=== PATIENT | female | born 2000 | race Asian ===

== ENCOUNTER → 2020-04-21 10:24 | Outpatient (BNVA) | payer OTHER, SELFPAY | PROVIDERS: Visit Provider Advanced Practice Midwife | DX: Z30.42 Encounter for surveillance of injectable contraceptive (principal) | CPT/HCPCS: 96372 ==

== ENCOUNTER 2020-05-10 11:48 | Outpatient (REF) | payer OTHER, SELFPAY | END 2020-05-10 11:49 | disposition home or self-care (01) | LOC: HO.LAB 11:48 | PROVIDERS: PCP Physician Assistant; Visit Provider Internal Medicine | DX: Z20.828 Contact with and (suspected) exposure to other viral communicable diseases (principal) | CPT/HCPCS: C9803; U0003 ==

== ENCOUNTER → 2020-07-10 12:54 | Outpatient (BNVA) | payer OTHER, SELFPAY | PROVIDERS: PCP Physician Assistant; Visit Provider Advanced Practice Midwife | DX: Z76.89 Persons encountering health services in other specified circumstances (principal) ==

== ENCOUNTER 2021-01-26 14:10 | Outpatient (REF) | payer OTHER, SELFPAY ==
--- NOTE | ~2021-01-26 | XR_ITS ---
EXAMINATION: XR FINGER, RIGHT CLINICAL INFORMATION: Pain right finger COMPARISON: None TECHNIQUE: 3 views of the right finger. FINDINGS: The bones and soft tissues are normal. No fracture. Alignment is anatomic. Joint spaces are maintained. XR/XR finger RT min 2V IMPRESSION: Unremarkable right hand exam. Especially no abnormality seen involving the right first digit.
== END 2021-01-26 14:11 | disposition home or self-care (01) ==
LOC: HO.HMGCX 14:10
PROVIDERS: PCP Physician Assistant; Visit Provider Hospitalist
DX: M79.644 Pain in right finger(s) (principal)
CPT/HCPCS: 73140

== ENCOUNTER 2021-01-31 10:22 | Outpatient (REF) | payer OTHER, SELFPAY ==
[2021-01-31 16:09] LABS: CT PCR NOT DETECTED (Not Detect.); NG PCR NOT DETECTED (Not Detect.)
== END 2021-01-31 10:23 | disposition home or self-care (01) ==
LOC: HO.LAB 10:22
PROVIDERS: PCP Physician Assistant; Visit Provider Advanced Practice Midwife
DX: Z01.419 Encounter for gynecological examination (general) (routine) without abnormal findings (principal); Z11.3 Encounter for screening for infections with a predominantly sexual mode of transmission; Z20.2 Contact with and (suspected) exposure to infections with a predominantly sexual mode of transmission
CPT/HCPCS: 87491; 87591; 88142

== ENCOUNTER → 2021-02-01 08:59 | Outpatient (BNVA) | payer OTHER, SELFPAY | PROVIDERS: PCP Physician Assistant; Visit Provider Advanced Practice Midwife ==

== ENCOUNTER → 2021-04-26 08:49 | Outpatient (BNVA) | payer OTHER, SELFPAY | PROVIDERS: Visit Provider Advanced Practice Midwife ==

== ENCOUNTER → 2021-07-12 11:00 | Outpatient (BNVA) | payer OTHER, SELFPAY | PROVIDERS: Visit Provider Advanced Practice Midwife ==

== ENCOUNTER → 2021-10-05 11:28 | Outpatient (BNVA) | payer OTHER, SELFPAY | PROVIDERS: PCP Physician Assistant; Visit Provider Advanced Practice Midwife | DX: Z30.42 Encounter for surveillance of injectable contraceptive (principal) | CPT/HCPCS: 96372 ==

== ENCOUNTER 2021-11-20 07:08 | Outpatient (REF) | payer OTHER, SELFPAY ==
--- NOTE | ~2021-11-20 | XR_ITS ---
EXAMINATION: RIGHT WRIST X-RAY CLINICAL INFORMATION: Pain COMPARISON: None TECHNIQUE: 4 views of the right wrist FINDINGS: Bone alignment is normal. No fracture or dislocation is seen. The joint spaces are normal. Soft tissues are normal. XR/XR wrist RT w scaphoid IMPRESSION: Unremarkable exam.
== END 2021-11-20 07:09 | disposition home or self-care (01) ==
LOC: HO.HOSX 07:08
PROVIDERS: Visit Provider Physician Assistant
DX: M65.9 Synovitis and tenosynovitis, unspecified (principal)
CPT/HCPCS: 20600; 73110; J1100

== ENCOUNTER → 2021-12-28 11:06 | Outpatient (BNVA) | payer OTHER, SELFPAY | PROVIDERS: PCP Physician Assistant; Visit Provider Advanced Practice Midwife | DX: Z30.42 Encounter for surveillance of injectable contraceptive (principal) | CPT/HCPCS: 96372 ==

== ENCOUNTER → 2022-03-25 08:52 | Outpatient (BNVA) | payer OTHER, SELFPAY | PROVIDERS: PCP Physician Assistant; Visit Provider Advanced Practice Midwife | DX: Z30.42 Encounter for surveillance of injectable contraceptive (principal) | CPT/HCPCS: 96372 ==

== ENCOUNTER → 2022-06-17 09:34 | Outpatient (BNVA) | payer OTHER, SELFPAY | PROVIDERS: Visit Provider Advanced Practice Midwife | DX: Z30.42 Encounter for surveillance of injectable contraceptive (principal) | CPT/HCPCS: 96372 ==

== ENCOUNTER → 2022-09-09 15:00 | Outpatient (BNVA) | payer OTHER, SELFPAY | PROVIDERS: Visit Provider Advanced Practice Midwife | DX: Z30.42 Encounter for surveillance of injectable contraceptive (principal) | CPT/HCPCS: 96372 ==

== ENCOUNTER 2022-10-05 10:13 | Outpatient (REF) | payer OTHER, SELFPAY ==
[2022-10-05 10:29] LABS: Hematocrit 38.8 % (37.0-47.0); Hemoglobin 12.9 g/dl (12.0-16.0); Mean Corpuscular HGB Conc 33.2 g/dl (31.0-35.0); Mean Corpuscular Hemoglobin 29.3 pg (27.0-33.0); Mean Corpuscular Volume 88.2 fL (80.0-98.0); Mean Platelet Volume 9.1 fL (9.4-12.3); Platelet Count 235 X10*3/uL (160-400); Red Cell Distribution Width 13.2 % (11.0-16.0); White Blood Count 3.8 X10*3/uL (4.8-10.8)
[2022-10-05 11:33] LABS: Alanine Aminotransferase 7 U/L (0-31); Albumin Level 4.3 g/dL (3.5-5.0); Alkaline Phosphatase 47 U/L (39-117); Anion Gap 12 (12-20); Aspartate Amino Transferase 14 U/L (5-31); Bilirubin Total 0.5 mg/dL (0.0-1.0); Blood Urea Nitrogen 10 mg/dL (9-16); Calcium 8.9 mg/dL (8.4-10.2); Carbon Dioxide 22 mmol/L (22-29); Chloride 111 mmol/L (96-108); Estimated Glomerular Filt Rate > 60; Glucose Fasting 91 mg/dL (60-99); Potassium 4.2 mmol/L (3.3-5.1); Sodium 141 mmol/L (135-145); Total Protein 6.8 g/dL (6.5-8.0)
[2022-10-05 11:44] LABS: TSH reflex Free T4 0.62 uIU/mL (0.32-4.0)
== END 2022-10-05 10:14 | disposition home or self-care (01) ==
LOC: HO.LAB 10:13
PROVIDERS: PCP Physician Assistant; Visit Provider Physician Assistant
DX: Z13.29 Encounter for screening for other suspected endocrine disorder (principal); Z13.1 Encounter for screening for diabetes mellitus; Z20.2 Contact with and (suspected) exposure to infections with a predominantly sexual mode of transmission; F32.9 Major depressive disorder, single episode, unspecified
CPT/HCPCS: 36415; 80053; 84443; 85027

== ENCOUNTER 2022-10-12 10:23 | Outpatient (REF) | payer OTHER, SELFPAY | END 2022-10-12 10:24 | disposition home or self-care (01) | LOC: HO.LNP 10:23 | PROVIDERS: Visit Provider Physician Assistant | DX: K21.9 Gastro-esophageal reflux disease without esophagitis (principal) | CPT/HCPCS: 87338 ==

== ENCOUNTER → 2022-12-03 09:11 | Outpatient (BNVA) | payer OTHER, SELFPAY | PROVIDERS: PCP Physician Assistant; Visit Provider Advanced Practice Midwife | DX: Z30.42 Encounter for surveillance of injectable contraceptive (principal) | CPT/HCPCS: 96372 ==

== ENCOUNTER 2023-01-31 13:52 | Outpatient (AMB) | payer OTHER, SELFPAY ==
--- NOTE | 2023-01-31 13:54 | A.OFFVIS_ITS ---
Intake Vital Signs 01/31/23 13:57 Height 5 ft 5 in Weight 143 lb 4.807 oz BMI 23.8 BP 112/66 Intake Visit Reasons: depo consult Intake Note: The patient agreed to use of a medical practice assistant during this encounter. Scribed for KYRA Kidd by Modesta Cleary medical practice assistant, on 01/31/2023 at 2:00 pm EST Bleach Supervisor Required: No Information Interpreted: non-clinical & clinical Accompanied by: Mother Allergies amoxicillin Allergy (Unknown, Verified 01/31/23 13:57) Unknown penicillin V Allergy (Unknown, Verified 01/31/23 13:57) lack of effect No Known Allergies [No Known Allergies*] Allergy (Verified 01/31/23 13:57) Is last menstrual period known: No HPI HPI Comments History of Present Illness Details She presents to discuss Depo, accompanied by her aunt today. She reports receiving Depo every 12 weeks for the past one year and did not make the connection she was not having it every 10 weeks as she thought until she felt off with her mood changes for the past 6 months, and has been more sexually aroused in the past one year. She is very upset that her prescription was changed as she used to get it every 10 weeks since 2017 due to breakthrough bleeding nearing the time that it is due. Last Depo on 12/03/22. She is expecting her next dose to by on 02/07/23. She is transferring her care to [facility], her visit there is on 04/15/2023, request for records form signed. [facility] Medical History Depression with anxiety Social History Household Members: Family Housing: House Alcohol intake: current Alcohol intake frequency: a few times a week Patient Tobacco Use Status: Never used Tobacco e-Cigarette/Vaping Use: Never Used Substance Use Type: Marijuana Current occupational status: employed Current occupation: [employer] in [place] Sexual orientation: Straight/Heterosexual Gender identity: Female Cognitive needs: No Hearing needs: No Vision needs: No Female Reproductive History Menstrual Age of Menarche: 10 Review of Systems Const All systems reviewed & are unremarkable except as noted in HPI and below Physical Exam Vital Signs: Last Vital Signs BP 112/66 01/31/23 13:57 BMI result Body Mass Index 23.8 Const General: cooperative, healthy appearing, no acute distress, well developed and alert Assessment & Plan Assessment & Plan (1) Surveillance for Depo-Provera contraception: Code(s): Z30.42 - Encounter for surveillance of injectable contraceptive Plan: I apologized for any office errors and explained the normal Depo Provera injection is given q 12 weeks, unless there is a medical indication and that the normal computer order reflexes this to a q 12 wk. unless manually override is done and can easily default back to 12 wks. Rx sent to pharmacy to be given every 10 weeks, with 2 refills which should be adequate until her visit at [facility] 04/15/23. Appt. for 02/11/23 to be given for Depo that falls to a 10 week interval from her last injection. Medications: Changed From medroxyprogesterone (Depo-Provera) 150 mg IM Q12W 12 weeks 1 mL 3RF To medroxyprogesterone (Depo-Provera) 150 mg IM Q12W 1 mL 2RF 10 weeks Coding Level of Care Code Est Pt Level 3 (14825) Diagnoses Surveillance for Depo-Provera contraception Z30.42
[2023-01-31 13:57] VITALS: BP 112/66; BMI 23.8
== END 2023-01-31 14:18 | disposition home or self-care (01) ==
LOC: HO.HWS 13:52
PROVIDERS: PCP Physician Assistant; Visit Provider Advanced Practice Midwife
DX: Z30.42 Encounter for surveillance of injectable contraceptive (principal)
CPT/HCPCS: 99213

== ENCOUNTER → 2023-01-31 13:52 | Outpatient (BNVA) | payer OTHER, SELFPAY | PROVIDERS: PCP Physician Assistant; Visit Provider Advanced Practice Midwife ==

== ENCOUNTER 2023-02-11 09:04 | Outpatient (AMB) | payer OTHER, SELFPAY ==
[2023-02-11 09:26] VITALS: BMI 23.5
--- NOTE | 2023-02-11 09:26 | AM.OFFVISNUR ---
Intake Vital Signs 02/11/23 09:26 Height 5 ft 5 in Weight 141 lb 4 oz BMI 23.5 Intake Visit Reasons: DEPO Cloth Carrier Required: No Allergies amoxicillin Allergy (Unknown, Verified 01/31/23 13:57) Unknown penicillin V Allergy (Unknown, Verified 01/31/23 13:57) lack of effect No Known Allergies [No Known Allergies*] Allergy (Verified 01/31/23 13:57) Is last menstrual period known: No Post menopausal: No Patient : No Nursing Note Pt is here for scheduled Depo provera injection. She is now on a 10 week schedule d/t breakthrough bleeding nearing the time that it is due. No c/o today except for irregular bleeding x1 month. Pt was seen by Soni re: breakthrough bleeding 01/31/23. Pt tolerated injection well. Will schedule next injection in 10 weeks. Pt has plans to transfer her care to [facility] in April. Office Procedures Depo Questionnaire If YES to any of the following questions, please consult a provider. Date of last injection: 12/03/22 Menstrual pattern since last injection has been: Not Applicable Irregular bleeding?: Yes Breast lumps or other breast changes?: No Changes in weight or appetite?: No Depression or changes in mood?: Yes Abnormal hair growth or loss?: No Skin problems (rash, acne, discoloration)?: No Pain at the injection site?: No Headaches?: No Nervousness?: No Abdominal pain or cramping?: No Dizziness or nausea?: No Fatigue or weakness?: No Decrease in sexual drive?: No Chest pain or shortness of breath?: No Swelling in arms or legs?: No Form completed by?: Raissa North RN Office Meds Depo-Provera Performing Provider: Soni Pollard CNM Administered by: Raissa North on 02/11/23 09:36 Dose Route Admin Location Lot Number Expiration Date NDC Lacquer Polisher 150 mg IM right deltoid [id number] 04/05/25 66121-453-79 [employer] [facility] Coding Level of Care Code Established Pt Est Pt Level 1 (68129) Patient Type Established History Problem Focused Medical Decision Making Straight Forward Diagnoses Time Spent (min) 12 Assessment & Plan Assessment & Plan Orders: Orders AMB Medroxyprogesterone Injection Patient Supplied Today Z30.42 - Encounter for surveillance of injectable contraceptive
== END 2023-02-11 09:20 | disposition home or self-care (01) ==
LOC: HO.HWS 09:04
PROVIDERS: PCP Physician Assistant; Visit Provider Advanced Practice Midwife
DX: Z30.42 Encounter for surveillance of injectable contraceptive (principal)
CPT/HCPCS: 99211

== ENCOUNTER → 2023-02-11 09:04 | Outpatient (BNVA) | payer OTHER, SELFPAY | PROVIDERS: PCP Physician Assistant; Visit Provider Advanced Practice Midwife | DX: Z30.42 Encounter for surveillance of injectable contraceptive (principal) | CPT/HCPCS: 96372; J1050 ==

== ENCOUNTER 2023-03-24 14:54 | Outpatient (REF) | payer OTHER, SELFPAY ==
[2023-03-25 04:48] LABS: Syphilis Screen Nonreactive (Nonreactive)
[2023-03-25 04:52] LABS: HIV AB/AG Nonreactive (Nonreactive); HIV Num 1 0.07 S/CO (0.00-0.99)
== END 2023-03-24 14:55 | disposition home or self-care (01) ==
LOC: HO.LAB 14:54
PROVIDERS: PCP Physician Assistant; Visit Provider Physician Assistant
DX: Z11.4 Encounter for screening for human immunodeficiency virus [HIV] (principal); Z20.2 Contact with and (suspected) exposure to infections with a predominantly sexual mode of transmission
CPT/HCPCS: 36415; 86780; 87389

== ENCOUNTER 2023-03-26 13:55 | Outpatient (REF) | payer OTHER, SELFPAY ==
[2023-03-26 16:47] LABS: CT PCR NOT DETECTED (Not Detect.); NG PCR NOT DETECTED (Not Detect.)
== END 2023-03-26 13:56 | disposition home or self-care (01) ==
LOC: HO.LAB 13:55
PROVIDERS: PCP Physician Assistant; Visit Provider Physician Assistant
DX: Z20.2 Contact with and (suspected) exposure to infections with a predominantly sexual mode of transmission (principal)
CPT/HCPCS: 0353U

== ENCOUNTER 2023-04-10 08:55 | Emergency (ER) | payer OTHER, SELFPAY ==
[2023-04-10 09:02] VITALS: BP 115/73; PULSE 101; RESP 16; TEMP 37; O2SAT 100; BMI 23.4
--- NOTE | 2023-04-10 09:46 | ED.GENADULT ---
HPI - General Adult General Chief complaint: General Medical Stated complaint: vomiting cough Time Seen by Provider: 04/10/23 09:29 Source: patient Mode of arrival: ambulatory Limitations: no limitations History of Present Illness HPI narrative: 22 y o female presenting for evaluation of sore throat, headache ( diffuse in nature, atraumatic, no dizziness or vision changes), cough, congestion, subjective fever, nausea, vomiting and abdominal pain x 4 days. She reports her throat started hurting Friday night and has been progressively worsening, stating she has noticed last night the development of white spots on her tonsils. She also states her headache started last night in addition to vomiting x2 last night. She currently reports RLQ mercado and nausea, and states she is unable to tolerate PO intake. Also endorsing a cough and mild shortness of breath with exertion, better with rest. No previous surgeries. No recent sick contacts. Related Data Previous Rx's Medication Instructions Recorded loratadine 10 mg tablet 10 mg PO DAILY #30 tabs 10/03/22 pantoprazole 20 mg tablet,delayed 20 mg PO DAILY #30 tabs 10/03/22 release sertraline 100 mg tablet 100 mg PO DAILY #90 tabs 11/11/22 lidocaine HCl 2 % mucosal solution 5 ml mucous membrane TID PRN pain 12/27/22 (Lidocaine Viscous) 10 days #100 mL valacyclovir 1 gram tablet 2,000 mg (2 x 1 gram) PO Q12H 1 12/27/22 day #4 tabs medroxyprogesterone 150 mg/mL 150 mg IM Q12W 10 weeks #1 mL 01/31/23 intramuscular suspension (Depo-Provera) Magic Mouthwash 5 ml PO TID #240 mL 04/10/23 Diphen/Lido/Antacid 1:1:1 240 mL suspension azithromycin 500 mg tablet 500 mg PO DAILY 5 days #5 tabs 04/10/23 cefuroxime axetil 250 mg tablet 250 mg PO BID 7 days #14 tabs 04/10/23 ondansetron 4 mg disintegrating 4 mg PO Q6H PRN nausea and 04/10/23 tablet vomiting #14 tabs Allergies Allergy/AdvReac Type Severity Reaction Status Date / Time amoxicillin Allergy Unknown Unknown Verified 04/10/23 09:02 penicillin V Allergy Unknown lack of Verified 04/10/23 09:02 effect No Known Allergies Allergy Verified 04/10/23 09:02 [No Known Allergies*] Review of Systems Review of Systems: Constitutional : No Weight loss, + Fever, No Chills, + Fatigue, No Malaise ENT/Mouth : + sore throat, No Rhinorrhea, +congestion Eyes: No Eye Pain, No Swelling, No Redness Cardiovascular : No Chest Pain, No SOB, + Dyspnea on Exertion, No Orthopnea, No Edema, No Palpitations Respiratory : +Cough,+ Sputum, No Wheezing Gastrointestinal : + Nausea, +Vomiting, No Diarrhea, No Constipation, + abdominal Pain, No Hematochezia, No Melena Genitourinary : No Dysuria, No Urinary Frequency, No Hematuria Musculoskeletal : No joint pain, + Myalgias, No Joint Swelling Skin : No Skin Lesions, No rash Neuro : No Weakness, No Numbness, No Dizziness, +Headache Psych : No Anxiety/Panic, No Depression All other systems reviewed and are negative Yes all other systems are reviewed and are negative [facility] Past Medical History Attestation statement: The following information was validated with the patient. Source: old records reviewed and nursing notes reviewed Medical History Depression with anxiety Social History Social History Household Members: Family Housing: House Alcohol intake: current Alcohol intake frequency: a few times a week Patient Tobacco Use Status: Never used Tobacco e-Cigarette/Vaping Use: Never Used Substance Use Type: Marijuana Advance Directives: No Current occupational status: employed Current occupation: [employer] in [place] Sexual orientation: Straight/Heterosexual Gender identity: Female Cognitive needs: No Hearing needs: No Vision needs: No Physical Exam ED Vital Signs: Vital Signs - 24 hr 04/10/23 09:02 04/10/23 10:42 Temperature 98.6 F 99.1 F Pulse Rate 101 H 90 Respiratory Rate 16 18 Blood Pressure 115/73 113/63 Pulse Oximetry 100 99 Oxygen Delivery Method Room Air BMI result Body Mass Index 23.4 VSS Appearance: Alert.? Oriented X3.? No acute distress.? Head: Normocephalic, atraumatic, no step-offs or deformities Eyes: Pupils equal, round and reactive to light.? ENT: Pharynx with moderate erythema and exudates b/l, tonsils 2+ and symmetric, no uvular shift, no petechiae, no distinct abscess. Equal rise and fall of the soft palate, speech without garbling, managing secretions. External ears normal, No pain with manipulation of external ears bilaterally. Neck: Normal inspection.? Neck supple.?Anterior cervical lymphadenopathy b/l, TTP and mobile CVS: Normal heart rate and rhythm.? Pulses normal.? Respiratory: No respiratory distress.? Breath sounds normal.? Abdomen: Soft and nondistended, +TTP to the RLQ, no rebound or guarding. No peritoneal signs. Negative obturator, rosving, psoas Skin: Skin warm and dry.? Normal skin color.? Normal skin turgor.? Extremities: No lower extremity edema.? No calf ttp. 5/5 strength to bilateral upper and lower extremities. 2+ oeripheral pulses in all 4 extremities. Back: No midline tenderness, no C-spine tenderness, full range of motion, no CVA tenderness bilaterally Neuro: Oriented X 3.? No motor deficit.? No sensory deficit. CN 2-12 intact Course Reevaluation(s) Reevaluation #1: CBC with leukocytosis and left shift, chemistry with no acute findings requiring intervention. Negative lactic acid. Patient's urine is noted to be infected with 2+ bacteria and leukocyte esterases, at this time infection suspected ceftriaxone as well as fluids ordered. Also pending CT abdomen and pelvis to rule out any intra-abdominal etiologies. Time: 12:02 Reevaluation #2: Patient felt better after Tylenol. CT abdomen and pelvis with suspect focal enteritis. Difficult to visualize of their form appendix with there is no inflammatory changes near the expected region of the appendix or cecum. Patient's pain improved right lower quadrant, less likely appendicitis enteritis is compatible with patient history and physical exam. Patient tolerating p.o. ate crackers. Appears better. At this time patient to be discharged home with strict return precautions. Educated patient on diagnosis and treatment plan, answered all question, patient verbalizes understanding. At this time patient will be discharged home, advised to return with new or worsening symptoms. Educated on worrisome signs and symptoms and when to return. At this time I feel comfortable discharge home. Time: 14:20 Medications Administered Discontinued Medications Generic Name Dose Route Start Last Admin Trade Name Freq PRN Reason Stop Dose Admin Acetaminophen 650 mg 04/10/23 09:55 04/10/23 10:01 Acetaminophen 325 Mg Tablet PO 04/10/23 09:56 650 mg ONCE ONE Administration Dexamethasone Sodium Phosphate 10 mg 04/10/23 12:04 04/10/23 12:18 Dexamethasone Sod Phosphate 10 Mg/Ml Vial IVPUSH 04/10/23 12:05 10 mg ONCE ONE Administration Ceftriaxone Sodium 1 gm/ 50 mls @ 100 mls/hr 04/10/23 12:01 04/10/23 13:52 Sodium Chloride IV 04/10/23 12:30 Infused ONCE ONE Infusion Sodium Chloride 1,973.13 mls @ 1,973.13 mls/hr 04/10/23 12:01 04/10/23 12:19 Ns 30 ml/kg infuse over 1 hr (1973.13 ml) 04/10/23 13:00 1,973.13 mls/hr IV Administration .Q1H STA Iohexol 85 ml 04/10/23 11:41 04/10/23 11:41 Iohexol 350 Mg/Ml 100 Ml Infus..Btl IV 04/10/23 11:42 85 ml ONCE ONE Administration Medical Decision Making Medical Decision Making MDM Narrative: 1000 22 y o female presenting with sore throat, cough, congestion, headache, nausea and vomiting x4 days PE demonstrating Pharynx with moderate erythema and exudates b/l, tonsils 2+ and symmetric, no uvular shift, no petechiae, no distinct abscess. Equal rise and fall of the soft palate, speech without garbling, managing secretions. External ears normal, No pain with manipulation of external ears bilaterally. Anterior cervical lymphadenopathy b/l, TTP and mobile. +TTP to the RLQ without rebound or guarding, no peritoneal signs. Possible strep pharyngitis vs viral pharnygitis vs infectious mononucleosis vs COVID vs influenza. GI symptoms may correlate with the above mentioned vs viral gastroenteritis vs appendicitis. I am not concerned for an acute abdomen, abdomen is soft with only TTP in the RLQ, no rebound or guarding. Also likely dehydrated secondary to nausea and vomiting. Unlikley epiglotitis, peritonsillar or retropharyngeal abscess no signs of threat to airway. Unlikley diverticulits, pancreatitis, cholycysitits, OBS. Plan -- viral testing, strep testing, labs Differential Diagnosis Differential Diagnoses: The differential diagnosis associated with the presentation includes Possible strep pharyngitis vs viral pharnygitis vs infectious mononucleosis vs COVID vs influenza. GI symptoms may correlate with the above mentioned vs viral gastroenteritis vs appendicitis. I am not concerned for an acute abdomen, abdomen is soft with only TTP in the RLQ, no rebound or guarding. Also likely dehydrated secondary to nausea and vomiting. Unlikley epiglotitis, peritonsillar or retropharyngeal abscess no signs of threat to airway. Unlikley diverticulits, pancreatitis, cholycysitits, OBS. Admission/Observation Consideration of admission/observation: Escalation of care including admission/observation considered Unlikely Lab Data MDM Lab Attestation statement: I reviewed the patient's lab results. 04/10/23 10:04/10/23 10: Labs: Lab Results 04/10/23 04/10/23 04/10/23 Range/Units 09:08 10:22 11:00 WBC 13.1 H (4.8-10.8) X10*3/uL RBC 4.13 L (4.20-5.50) X10*6/uL Hgb 12.4 (12.0-16.0) g/dl Hct 36.7 L (37.0-47.0) % MCV 88.9 (80.0-98.0) fL MCH 30.0 (27.0-33.0) pg MCHC 33.8 (31.0-35.0) g/dl RDW 13.2 (11.0-16.0) % Plt Count 222 (160-400) X10*3/uL MPV 9.2 L (9.4-12.3) fL Immature Gran % (Auto) 0.5 H (0.0-0.4) % Neut % (Auto) 87.5 H (45-73) % Lymph % (Auto) 6.4 L (20-40) % [place] % (Auto) 5.3 (2-11) % Eos % (Auto) 0.1 (0-4) % Baso % (Auto) 0.2 (0-2) % Lymph # (Auto) 0.8 L (1.2-4.9) X10*3/uL [place] # (Auto) 0.7 (0.1-1.2) X10*3/uL Eos # (Auto) 0.0 (0.0-0.4) X10*3/uL Baso # (Auto) 0.0 (0.0-0.2) X10*3/uL Abs Immat Gran (auto) 0.06 H (0.00-0.03) X10*3/uL Absolute Neuts (auto) 11.5 H (2.0-8.3) x10*3/uL Absolute Nucleated RBC 0.000 (0.0-0.012) X10*3/uL Nucleated RBC % (auto) 0.0 (0.0-0.2) /100WBC Sodium 137 (135-145) mmol/L Potassium 4.3 (3.3-5.1) mmol/L Chloride 106 (96-108) mmol/L Carbon Dioxide 20 L (22-29) mmol/L Anion Gap 15 (12-20) BUN 7 L (9-16) mg/dL Creatinine 0.68 (0.5-1.4) mg/dL Estim Creat Clear Calc 120.4 Estimated GFR > 60 Random Glucose 94 (60-115) mg/dL Lactic Acid 0.8 (0.5-2.0) mmol/L Calcium 9.2 (8.4-10.2) mg/dL Total Bilirubin 0.6 (0.0-1.0) mg/dL AST 16 (5-31) U/L ALT 8 (0-31) U/L Alkaline Phosphatase 55 (39-117) U/L Total Protein 7.5 (6.5-8.0) g/dL Albumin 4.3 (3.5-5.0) g/dL Lipase 6 L (8-78) U/L Beta HCG, Quant < 2 mIU/mL Urine Color Dark Yellow Urine Appearance Clear Urine pH 6.5 (5.0-9.0) Ur Specific [place] >= 1.030 H (1.005-1.025) Urine Protein Trace (Neg-Trace) mg/dL Urine Glucose (UA) Negative (Negative) mg/dL Urine Ketones 40 (Negative) mg/dL Urine Blood Moderate (2+) H (Negative) Urine Nitrite Negative (Negative) Ur Leukocyte Esterase Small (1+) H (Negative) Urine RBC 6-10 H (0-2) /HPF Urine WBC 11-20 H (0-5) /HPF Ur Squamous Epith Cells 6-10 (0-2) /HPF Urine Bacteria 2+ (None Seen) Hyaline Casts 0-2 (0-2) /LPF Monoscreen Negative (Negative) Influenza Type A (PCR) NEGATIVE (Negative) Influenza Type B (PCR) NEGATIVE (Negative) RSV RNA Qual (PCR) NEGATIVE (Negative) SARS-CoV-2 RNA (RT-PCR) NEGATIVE (Negative) S. pyogenes GrpA AIME Negative (Negative) Independent Interpretation I performed an independent interpretation of an: CT Scan Radiology Impression Discussion of test interpretation with radiology: I have reviewed the radiologist's reading. External Record Review External record reviewed: Inpatient record and Outpatient record Critical Care Time Critical Care Time Critical Care Time: Yes Total Critical Care Time: 35 Attestation: I attest to this time spent taking care of the patient, obtaining history, physical, reviewing labs, imaging, speaking to my attending Discharge Plan Discharge Clinical Impression: UTI (urinary tract infection), Pharyngitis, Abdominal pain, RLQ, Nausea & vomiting, Enteritis Patient Disposition: Home, Self-Care Instructions: Urinary Tract Infection in Women (ED), Pharyngitis (ED), Acute Nausea and Vomiting (ED), Abdominal Pain (ED) Additional Instructions: Take your medications as prescribed. If you were prescribed antibiotics today, it is important that you take your medication to their entirety, do not skip any doses, do not finish them early. Follow-up with your primary care provider this week. Return to the emergency department with new or worsening symptoms. Such as fevers, chills, chest pain, shortness of breath, nausea, vomiting, dizziness, headache, vision changes, lethargy In case of emergency call 911 Prescriptions: New cefuroxime axetil 250 mg tablet 250 mg PO BID 7 Days Qty: 14 0RF ondansetron 4 mg tablet,disintegrating 4 mg PO Q6H PRN (Reason: nausea and vomiting) Qty: 14 0RF Magic Mouthwash Diphen/Lido/Antacid 1:1:1 240 mL suspension 5 ml PO TID Qty: 240 0RF Rx Instructions: Lidocaine Viscous 2 % 80mL; diphenhydramine 12.5 mg/5 mL 80mL; aluminum-mag hydrox-simeth [id number]/5mL 80mL Swish and spit, do not swallow No Action loratadine 10 mg tablet 10 mg PO DAILY Qty: 30 0RF pantoprazole 20 mg tablet,delayed release (DR/EC) 20 mg PO DAILY Qty: 30 0RF sertraline 100 mg tablet 100 mg PO DAILY Qty: 90 2RF valacyclovir 1 gram tablet 2,000 mg PO Q12H 1 Days Qty: 4 0RF lidocaine HCl [Lidocaine Viscous] 2 % solution 5 ml mucous membrane TID PRN (Reason: pain) 10 Days Qty: 100 0RF Rx Instructions: swish and spit out azithromycin 500 mg tablet 500 mg PO DAILY 5 Days Qty: 5 0RF medroxyprogesterone [Depo-Provera] 150 mg/mL suspension 150 mg IM Q12W 70 Days Qty: 1 2RF Referrals: Garrett Willoughby PA-C [Primary Care Provider] - 2 days Stand Alone Forms: Work/School Release
[2023-04-10 10:42] VITALS: BP 113/63; PULSE 90; RESP 18; TEMP 37.3; O2SAT 99
--- NOTE | 2023-04-10 14:19 | PC.NURSE ---
Patient was able to eat crackers.
== END 2023-04-10 14:59 | disposition home or self-care (01) ==
PROVIDERS: Emergency Provider Emergency Medicine; PCP Physician Assistant
DX: N39.0 Urinary tract infection, site not specified (principal); J02.9 Acute pharyngitis, unspecified; R10.31 Right lower quadrant pain; K52.9 Noninfective gastroenteritis and colitis, unspecified; R11.2 Nausea with vomiting, unspecified; Z20.822 Contact with and (suspected) exposure to COVID-19; Z20.828 Contact with and (suspected) exposure to other viral communicable diseases; F12.90 Cannabis use, unspecified, uncomplicated; Z79.899 Other long term (current) drug therapy
CPT/HCPCS: 0241U; 36415; 74177; 80053; 81001; 83605; 83690; 84702; 85025; 86308; 87040; 87086; 87651; 96361; 96374; 96375; 99284; J0696; J1100; Q9967

== ENCOUNTER 2023-04-25 08:12 | Outpatient (AMB) | payer OTHER, SELFPAY ==
[2023-04-25 08:15] VITALS: BP 112/72; PULSE 82; TEMP 36.4; O2SAT 98; BMI 23.4
--- NOTE | 2023-04-25 08:15 | AM.OFFWIN_ITS ---
Intake Vital Signs 04/25/23 08:15 Height 5 ft 6 in Weight 145 lb BMI 23.4 BP 112/72 Blood Pressure Location Lt brachial Position Sitting Pulse 82 Pulse Source Pulse Oximeter Temp 97.6 F Temp Source Temporal Artery Scan Pulse Oximetry (%) 98 Intake Visit Reasons: EP-Body ache, flu?-[phone] Intake Note: pt is here for c/o body ache, headache, dizziness, ear pain 2 weeks Patient Tobacco Use Status: Never used Tobacco Allergies amoxicillin Allergy (Unknown, Verified 04/25/23 08:16) Unknown penicillin V Allergy (Unknown, Verified 04/25/23 08:16) lack of effect No Known Allergies [No Known Allergies*] Allergy (Verified 04/25/23 08:16) Medication List - Last Reconciled 04/25/23 by Rober Hunter MD loratadine 10 mg PO DAILY Magic Mouthwash Diphen/Lido/Antacid 1:1:1 5 mL PO TID medroxyprogesterone (Depo-Provera) 150 mg IM Q12W 10 weeks ondansetron 4 mg PO Q6H PRN sertraline 100 mg PO DAILY Do you need a note to return to daycare/school/sports/work: Yes HPI EP-Body ache, flu?-[phone] HPI Details 22-year-old female [facility] a sick visit. Patient has been sick for a month. Initially she had symptoms of respiratory illness, sore throat headache and ear congestion. Symptoms were subsiding when she started having increased frequency and burning on urination. She proceeded to the emergency room and was diagnosed with a UTI. Patient completed 7 days of antibiotics. In the past 3 days the pain in her throat has worsened. She has symptoms of a headache, nausea and vomiting. No blurred vision. Works at the [employer]. Nobody is sick over there. Tested negative for COVID on 3 separate occasions. [facility] Medical History Depression with anxiety Social History Household Members: Family Housing: House Alcohol intake: current Alcohol intake frequency: a few times a week Patient Tobacco Use Status: Never used Tobacco e-Cigarette/Vaping Use: Never Used Substance Use Type: Marijuana Current occupational status: employed Current occupation: [employer] in [place] Sexual orientation: Straight/Heterosexual Gender identity: Female Cognitive needs: No Hearing needs: No Vision needs: No Female Reproductive History Menstrual Age of Menarche: 10 Physical Exam Vital Signs: Last Vital Signs Temp 97.6 F 04/25/23 08:15 Pulse 82 04/25/23 08:15 BP 112/72 04/25/23 08:15 Pulse Ox 98 04/25/23 08:15 BMI result Body Mass Index 23.4 Const Other: Tired looking. General: cooperative and healthy appearing Nutritional Appearance: well nourished Orientation/consciousness: patient oriented x3 Limitations: no limitations HEENT Head: Yes normal to inspection Eyes General: appearance normal, both eyes and all related structures Neck Other: No neck stiffness. Neck: Yes normal visual inspection Chest Chest palpation & inspection: normal palpation of entire chest wall Resp Effort & Inspection: normal respiratory effort Neuro General: patient oriented x3 Assessment & Plan Assessment & Plan (1) Acute pharyngitis: Code(s): J02.9 - Acute pharyngitis, unspecified Plan: Blood work has been ordered. [place] screen to be ordered. Patient could have minimal symptoms of meningismus. Rest and hydration suggested. Blood work has been ordered again. Tylenol every 6 hours [id number]. Azithromycin for empirical coverage. Orders: Orders Liver Panel Today J02.9 - Acute pharyngitis, unspecified Thyroid Stimulating Hormone Today J02.9 - Acute pharyngitis, unspecified Complete Blood Count no Diff Today J02.9 - Acute pharyngitis, unspecified Erythrocyte Sedimentation Rate Today J02.9 - Acute pharyngitis, unspecified Basic Metabolic Panel Today J02.9 - Acute pharyngitis, unspecified AMB [place] Screen Today J02.9 - Acute pharyngitis, unspecified, Z13.9 - Encounter for screening, unspecified Coding Level of Care Code Est Pt Level 4 (88001) Diagnoses Acute pharyngitis J02.9
== END 2023-04-25 09:05 | disposition home or self-care (01) ==
PROVIDERS: PCP Physician Assistant; Visit Provider Internal Medicine
DX: J02.9 Acute pharyngitis, unspecified (principal)
CPT/HCPCS: 99214

== ENCOUNTER 2023-04-25 08:49 | Outpatient (REF) | payer OTHER, SELFPAY ==
[2023-04-25 11:48] LABS: Hematocrit 37.5 % (37.0-47.0); Mean Corpuscular Hemoglobin 29.3 pg (27.0-33.0); Mean Corpuscular Volume 91.7 fL (80.0-98.0); Mean Platelet Volume 9.9 fL (9.4-12.3); Platelet Count 252 X10*3/uL (160-400); Red Blood Count 4.09 X10*6/uL (4.20-5.50); Red Cell Distribution Width 13.3 % (11.0-16.0); White Blood Count 8.1 X10*3/uL (4.8-10.8)
[2023-04-25 12:24] LABS: Alanine Aminotransferase 10 U/L (0-31); Albumin Level 4.3 g/dL (3.5-5.0); Alkaline Phosphatase 63 U/L (39-117); Anion Gap 14 (12-20); Aspartate Amino Transferase 14 U/L (5-31); Bilirubin Direct < 0.2 mg/dL (0.0-0.5); Bilirubin Total 0.2 mg/dL (0.0-1.0); Blood Urea Nitrogen 11 mg/dL (9-16); Calcium 9.6 mg/dL (8.4-10.2); Carbon Dioxide 26 mmol/L (22-29); Chloride 106 mmol/L (96-108); Estimated Glomerular Filt Rate > 60; Glucose Random 95 mg/dL (60-115); Potassium 4.5 mmol/L (3.3-5.1); Sodium 141 mmol/L (135-145); Total Protein 7.6 g/dL (6.5-8.0)
[2023-04-25 12:25] LABS: Thyroid Stimulating Hormone 0.47 uIU/mL (0.32-4.0)
[2023-04-25 13:05] LABS: Erythrocyte Sedimentation Rate 37 MM/HR (0-20)
== END 2023-04-25 08:50 | disposition home or self-care (01) ==
LOC: HO.HMGCLDS 08:49
PROVIDERS: PCP Physician Assistant; Visit Provider Internal Medicine
DX: J02.9 Acute pharyngitis, unspecified (principal); E03.9 Hypothyroidism, unspecified
CPT/HCPCS: 36415; 80048; 80076; 84443; 85027; 85652

== ENCOUNTER 2023-10-07 08:07 | Outpatient (AMB) | payer OTHER, SELFPAY ==
[2023-10-07 08:13] VITALS: BP 108/68; BMI 22.3
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
== END 2023-10-07 08:39 | disposition home or self-care (01) ==
PROVIDERS: Visit Provider Physician Assistant
DX: Z00.00 Encounter for general adult medical examination without abnormal findings (principal); Z13.1 Encounter for screening for diabetes mellitus; F33.1 Major depressive disorder, recurrent, moderate; D50.0 Iron deficiency anemia secondary to blood loss (chronic); F41.1 Generalized anxiety disorder
CPT/HCPCS: 99395

== ENCOUNTER 2023-12-02 06:12 | Outpatient (REF) | payer OTHER, SELFPAY ==
[2023-12-02 08:05] LABS: Hematocrit 36.8 % (37.0-47.0); Hemoglobin 12.1 g/dl (12.0-16.0); Mean Corpuscular HGB Conc 32.9 g/dl (31.0-35.0); Mean Corpuscular Hemoglobin 29.6 pg (27.0-33.0); Platelet Count 222 X10*3/uL (160-400); Red Blood Count 4.09 X10*6/uL (4.20-5.50); Red Cell Distribution Width 12.8 % (11.0-16.0); White Blood Count 4.9 X10*3/uL (4.8-10.8)
[2023-12-02 08:40] LABS: Alanine Aminotransferase 9 U/L (0-31); Albumin Level 4.2 g/dL (3.5-5.0); Alkaline Phosphatase 59 U/L (39-117); Anion Gap 13 (12-20); Aspartate Amino Transferase 14 U/L (5-31); Bilirubin Total 0.2 mg/dL (0.0-1.0); Blood Urea Nitrogen 17 mg/dL (9-16); Carbon Dioxide 22 mmol/L (22-29); Chloride 112 mmol/L (96-108); Cholesterol 151 mg/dL (<200); Estimated Glomerular Filt Rate > 60; Glucose Fasting 89 mg/dL (60-99); HDL Cholesterol 57 mg/dL (>40); Iron 49 mcg/dL (30-160); LDL Cholesterol Calculated 87 mg/dL (<100); Percent Iron Saturation 15 % (15-50); Potassium 4.3 mmol/L (3.3-5.1); Sodium 143 mmol/L (135-145); Total Iron Binding Capacity 327 mcg/dL (228-428); Triglycerides 36 mg/dL (<150); Unsaturated Iron Binding 278 ug/dL
[2023-12-02 08:56] LABS: HBS Num1 34.72 mIU/mL (0-7.99); HBc Num1 0.12 S/CO (0.00-0.79); HBsAGNum1 0.32 S/CO (0.00-0.99); HIV AB/AG Nonreactive (Nonreactive); HIV Num 1 0.05 S/CO (0.00-0.99); Hepatitis B Core Antibody Nonreactive (Nonreactive); Hepatitis B Surface Antigen Negative (Negative); ~HepC Num1 0.12 S/CO (0.00-0.79); ~Hepatitis B Surface Antibody REACTIVE (Nonreactive); ~Hepatitis C Antibody Nonreactive (Nonreactive)
[2023-12-02 08:57] LABS: Syphilis Screen Nonreactive (Nonreactive)
[2023-12-02 09:38] LABS: CT PCR NOT DETECTED (Not Detect.); NG PCR NOT DETECTED (Not Detect.)
== END 2023-12-02 06:13 | disposition home or self-care (01) ==
LOC: HO.LAB 06:12
PROVIDERS: PCP Physician Assistant; Visit Provider Physician Assistant
DX: Z11.4 Encounter for screening for human immunodeficiency virus [HIV] (principal); Z13.6 Encounter for screening for cardiovascular disorders; Z13.1 Encounter for screening for diabetes mellitus; Z20.2 Contact with and (suspected) exposure to infections with a predominantly sexual mode of transmission; D50.0 Iron deficiency anemia secondary to blood loss (chronic)
CPT/HCPCS: 0353U; 80053; 80061; 83540; 85027; 86704; 86706; 86780; 86803; 87340; 87389

== ENCOUNTER 2023-12-09 10:20 | Outpatient (AMB) | payer OTHER, SELFPAY ==
--- NOTE | 2023-12-09 10:56 | MHC.OFFWIV ---
Intake Vital Signs 12/09/23 10:58 Height 5 ft 6 in Weight 141 lb 6 oz BMI 22.8 BP 118/72 Blood Pressure Location Lt brachial Position Sitting Pulse 104 H Pulse Source Pulse Oximeter Temp 99 F Temp Source Oral Pulse Oximetry (%) 99 Oxygen Delivery Method Room Air Intake Visit Reasons: EP sore throat Intake Note: Pt is here today for sore throat, difficulty swallowing. Pt states symptoms started Friday. Patient Tobacco Use Status: Never used Tobacco Allergies amoxicillin Allergy (Unknown, Verified 12/09/23 11:31) Unknown penicillin V Allergy (Unknown, Verified 12/09/23 11:31) lack of effect No Known Allergies [No Known Allergies*] Allergy (Verified 12/09/23 11:31) Medication List - Last Reconciled 12/09/23 by SHANNA Savage doxycycline monohydrate 100 mg PO BID 5 days hydroxyzine HCl 10 mg PO DAILY PRN 10 days loratadine 10 mg PO DAILY lorazepam 0.5 mg PO DAILY PRN 5 days Magic Mouthwash Diphen/Lido/Antacid 1:1:1 5 mL PO TID medroxyprogesterone (Depo-Provera) 150 mg IM Q12W 10 weeks ondansetron 4 mg PO Q6H PRN prednisone 40 mg (2 x 20 mg) PO DAILY sertraline 100 mg PO DAILY HPI HPI Comments History of Present Illness Details Patient is a 23-year-old female in today for a sick visit. Patient states that she has developed symptoms of cough and sore throat x2 days. Patient states that the sore throat is so painful that it is difficult for her to talk. She reports sending pictures of her throat to her PCP, who started her on doxycycline 1 day prior to this visit. Patient has history of the same, chronic tonsillitis, history of strep throat. On physical exam patient has tonsils +2 with bilateral tonsillar exudates. TM intact pearly kaufman. No sinus tenderness. Patient has full range of motion of neck. In office rapid strep was negative. However patient will be instructed to continue taking the doxycycline prescribed by her PCP based on the clinical symptoms. Will give patient prednisone. Patient will also be educated she can utilize [id number] medicine and warm salt water gargle. Patient denies symptoms of chest pain, shortness a breath, nausea, vomiting, diarrhea. PFSH Medical History Depression with anxiety Surgical History No pertinent past surgical history Social History Household Members: Family Housing: House Alcohol intake: current Alcohol intake frequency: a few times a month Alcohol type: hard liquor and other Patient Tobacco Use Status: Never used Tobacco e-Cigarette/Vaping Use: Never Used Second Hand Smoke Exposure: No Substance Use Type: Marijuana service: No Current occupational status: employed Current occupation: [employer] in [place] Current occupational exposures/hazards: No Sexual orientation: Straight/Heterosexual Gender identity: Female Cognitive needs: No Hearing needs: No Vision needs: No Female Reproductive History Menstrual Age of Menarche: 10 Review of Systems Const All systems reviewed & are unremarkable except as noted in HPI and below Denies chills, Denies fever(s) and Denies headache(s) Eyes Denies blurry vision ENT Denies otalgia, Denies headache(s) and Reports sore throat Card Denies chest pain and Denies dyspnea Resp Reports cough and Denies dyspnea GI Denies diarrhea, Denies nausea and Denies vomiting Neuro Denies headache(s) Physical Exam Vital Signs: Last Vital Signs Temp 99 F 12/09/23 10:58 Pulse 104 H 12/09/23 10:58 BP 118/72 12/09/23 10:58 Pulse Ox 99 12/09/23 10:58 Oxygen Delivery Method Room Air 12/09/23 10:58 BMI result Body Mass Index 22.8 Const Other: Appearance: Alert.? Oriented X3.? No acute distress.? Head: Normocephalic. Eyes: Sclera white. ENT: Pharynx erythema. Tonsils +2. +Tonsilar Exudates. TM intact and pearly kaufman. Neck: Normal inspection.? Neck supple.?Full ROM. CVS: Normal heart rate and rhythm.? Pulses normal.? Respiratory: No respiratory distress.? Breath sounds normal.? Neuro: Oriented X 3.? Assessment & Plan Assessment & Plan (1) Strep pharyngitis: Comment: Patient instructed to continue taking doxycycline prescribed by previous provider. Patient will be given prednisone to be taken as prescribed. Patient has been educated on side effects of these medications. Patient has been educated on signs of worsening symptoms and when to report to the walk-in or when to present to the ED. Code(s): J02.0 - Streptococcal pharyngitis Plan: Will call with URI swab results Plan Follow-up with PCP Orders: Orders SARS-CoV2/FLU/RSV Today J06.9 - Acute upper respiratory infection, unspecified Medications: New prednisone 40 mg (2 x 20 mg) PO DAILY 10 tabs 0RF Coding Level of Care Code Est Pt Level 3 (40648) Diagnoses Strep pharyngitis J02.0 Time Spent (min) 27
[2023-12-09 10:58] VITALS: BP 118/72; PULSE 104; TEMP 37.2; O2SAT 99; BMI 22.8
== END 2023-12-09 11:48 | disposition home or self-care (01) ==
PROVIDERS: PCP Physician Assistant; Visit Provider Nurse Practitioner Primary Care
DX: J02.0 Streptococcal pharyngitis (principal)
CPT/HCPCS: 87880; 99213

== ENCOUNTER 2023-12-09 13:21 | Outpatient (REF) | payer OTHER, SELFPAY ==
[2023-12-09 14:46] LABS: Influenza A PCR NEGATIVE (Negative); Influenza B PCR NEGATIVE (Negative); Resp Syncy Virus RNA Qual PCR NEGATIVE (Negative); SARS COV2 PCR INHOUSE NEGATIVE (Negative)
== END 2023-12-09 13:22 | disposition home or self-care (01) ==
LOC: HO.LNP 13:21
PROVIDERS: Visit Provider Nurse Practitioner Primary Care
DX: J06.9 Acute upper respiratory infection, unspecified (principal)
CPT/HCPCS: 0241U

== ENCOUNTER 2023-12-27 10:17 | Outpatient (REF) | payer OTHER, SELFPAY ==
[2023-12-27 12:44] LABS: CT PCR NOT DETECTED (Not Detect.); NG PCR NOT DETECTED (Not Detect.)
[2023-12-29 08:33] LABS: HIV AB/AG Nonreactive (Nonreactive); HIV Num 1 0.06 S/CO (0.00-0.99)
[2023-12-29 08:36] LABS: Syphilis Screen Nonreactive (Nonreactive)
== END 2023-12-27 10:18 | disposition home or self-care (01) ==
LOC: HO.LAB 10:17
PROVIDERS: PCP Physician Assistant; Visit Provider Physician Assistant
DX: Z11.3 Encounter for screening for infections with a predominantly sexual mode of transmission (principal); Z20.2 Contact with and (suspected) exposure to infections with a predominantly sexual mode of transmission
CPT/HCPCS: 0353U; 86780; 87389

== ENCOUNTER 2024-02-17 14:50 | Outpatient (REF) | payer OTHER, SELFPAY ==
[2024-02-18 08:12] LABS: HIV AB/AG Nonreactive (Nonreactive); HIV Num 1 0.13 S/CO (0.00-0.99)
== END 2024-02-17 14:51 | disposition home or self-care (01) ==
LOC: HO.LAB 14:50
PROVIDERS: PCP Physician Assistant; Visit Provider Physician Assistant
DX: Z11.3 Encounter for screening for infections with a predominantly sexual mode of transmission (principal)
CPT/HCPCS: 36415; 87389

== ENCOUNTER 2024-02-26 15:35 | Outpatient (REF) | payer OTHER, SELFPAY ==
[2024-02-26 18:07] LABS: CT PCR NOT DETECTED (Not Detect.); NG PCR NOT DETECTED (Not Detect.)
[2024-02-27 08:30] LABS: Syphilis Screen Nonreactive (Nonreactive)
== END 2024-02-26 15:36 | disposition home or self-care (01) ==
LOC: HO.LAB 15:35
PROVIDERS: PCP Physician Assistant; Visit Provider Physician Assistant
DX: Z20.2 Contact with and (suspected) exposure to infections with a predominantly sexual mode of transmission (principal); Z11.3 Encounter for screening for infections with a predominantly sexual mode of transmission
CPT/HCPCS: 86780; 87491; 87591

== ENCOUNTER 2024-07-27 14:31 | Outpatient (REF) | payer OTHER, SELFPAY ==
[2024-07-28 08:23] LABS: HIV AB/AG Nonreactive (Nonreactive); HIV Num 1 0.06 S/CO (0.00-0.99)
[2024-07-28 08:25] LABS: Syphilis Screen Nonreactive (Nonreactive)
[2024-07-28 12:33] LABS: Herpes Simplex Type 2 IgG <0.90 index
== END 2024-07-27 14:32 | disposition home or self-care (01) ==
LOC: HO.LAB 14:31
PROVIDERS: PCP Physician Assistant; Visit Provider Physician Assistant
DX: B00.9 Herpesviral infection, unspecified (principal); Z20.2 Contact with and (suspected) exposure to infections with a predominantly sexual mode of transmission; Z11.3 Encounter for screening for infections with a predominantly sexual mode of transmission
CPT/HCPCS: 86695; 86696; 86780; 87389

== ENCOUNTER 2024-08-03 09:59 | Outpatient (AMB) | payer OTHER, SELFPAY ==
--- OUTSIDE RECORDS SUMMARY | 2024-08-03 10:45 | XMS_ITS | Data Portability ---
Author Organization [facility], [facility] Address [address] [place] [id number] Care Team Providers Care Drop Wirer Name Role Phone DAWSON MOISE Orthopedic Surgeon Assessment Encounter Date Assessment Date Assessment LastModified by Organization Details LastModified Time 05/04/2018 05/04/2018 IMAGING: Radiographs obtained in the emergency room upon my review are negative for any bony abnormalities or calcification. Probable stress reaction, right second metatarsal. Use of an extended graphite shank in lieu of a fracture boot and vitamin D supplementation were discussed. If the symptoms warrant, an MRI could be considered. Based on the chronicity of her symptoms, she is interested in having an MRI performed. This will be ordered. Followup will be after the MRI for further evaluation. [email or web address] Not available 05/08/2018 10:55:06 05/13/2018 05/13/2018 2ND MT NECK STRE SS REACTION IN THE SETTING OF A MILD CAVOVARUS FOOT DEFORMITY Nelida's recent right foot MRI was discussed, and shows evidence of a stress reaction overlying the 2nd MT neck. She was informed of the role her higher arched foot plays in her symptoms. It was recommended she utilize stiff-soled shoes. If no relief, there is consideration for immobilization in a fracture boot. There are surgical options, but I do not recommend starting there. She will continue vitamin D3 supplements. Follow-up will be in 2 months prn if symptoms are not resolving. [email or web address] Not available 05/13/2018 15:52:46 Plan of Treatment Reminders Order Date Submit Date Provider Last Modified By Organization Details Last Modified Time Details Appointments None recorded. Lab None recorded. Referral None recorded. Procedures None recorded. Surgeries None recorded. Imaging MRI, foot, w/o contrast - CPT: 60959CKD right foot no contrastR/ O stress fracture 2017 018 SOMMER Gotti MD, [address], [place], [address], 8 14:57:48 Medication Orders None recorded. Patient TargetsNo targets recorded. Patient Instructions Encounter Date Encounter Id Patient Instructions Last Modified By Organization Details Last Modified Time 05/04/2018 [id number] [email or web address] Not available 05/08 10:54:52 Reason for Referral None Reported. Results Created Date Observation Date Name Description Value Unit Range Abnormal Flag Note LastModifiedBy Organization Detail LastModifiedTime 05/05/20 18 XR, foot, 3 or more view No observ ation record ed. [email or web address] Not Available 2017 10:41:08 05/12/20 18 05/11/2018 MRI, foot, w/o contr ast No observ ation record ed. Thomas Gotti MD [address] [facility] [address], [place], [address], 05/13/2018 18:38:54 Result Notes None recorded. Problems No Known Problems Procedures Surgical History None recorded. Imaging Results Imaging Date Name Status LastModified by Organiz ation Details LastModified Time 05/05/2018 XR, foot, 3 or more view completed Information not available 05/05/2018 10:41:08 05/11/2018 MRI, foot, w/o contrast completed [email or web address] Thomas Gotti MD [address] [facility] [address], [place], [address], 05/13/2018 18:38:54 Procedure Notes None recorded. Medical Equipment None Reported. Allergies No known drug allergies Medications Name Sig Start Date Stop Date Status Note LastModified by Organization Details LastModified Time Zoloft active Not Available Not Availa ble Not Available acyclovir active Not Available Not Priya ilable Not Available Vitals Date Recorded Body height Provider Name an d Address Organization Details Last Updated DateTime 05/04/2018 167.64 cm Edith Suarez [facility] 05/04/2018 15:26:14 Date Recorded Body mass index (BMI) Provider Name and Address Organization Details Last Updated DateTime 05/04/2018 21 kg/m2 Edith Daniela [place] [facility] 05/04/2018 15:26:17 Date Recorded Body weight Provider Name an d Address Organization Details Last Updated DateTime 05/04/2018 01725.01 g Edith [place] [facility] 05/04/2018 15:26:18 Date Recorded Heart rate Provider Name an d Address Organization Details Last Updated DateTime 05/04/2018 94 /min Edith [place] [facility] 05/04/2018 15:26:23 Date Recorded Body height Provider Name an d Address Organization Details Last Updated DateTime 05/13/2018 167.64 cm Edith [place] [facility] 05/13/2018 15:36:42 Date Recorded Body mass index (BMI) Body weight Provider Name and Address Organization Details Last Updated DateTime 05/13/2018 21 kg/m2 52521.01 g Edith [place] [facility] 05/13/2018 15:36:45 Date Recorded Heart rate Provider Name an d Address Organization Details Last Updated DateTime 05/13/2018 88 /min Edith [place] [facility] 05/13/2018 15:36:50 Date Recorded Systolic blood pressure Diastolic blood pressure Provider Name and Address Organization Details Last Updated DateTime 05/04/2018 107 mm[Hg] 84 mm[Hg] Edith Daniela [place] [facility] 05/04/2018 15:26:21 Date Recorded Systolic blood pressure Diastolic blood pressure Provider Name and Address Organization Details Last Updated DateTime 05/13/2018 110 mm[Hg] 80 mm[Hg] Edith Daniela [place] [facility] 05/13/2018 15:36:48 Social History Question Answer Notes LastModified by Organizat ion Details LastModified Time Tobacco Smoking Status Never Smoker Edith [place] null, [place] [facility] 05/04/2018 15:26:40 What Is Your Level Of Alcohol Consumption? None Information not available 05/04/2018 How Many Years Have You Consumed Alcohol? 0 Information not available 05/04/2018 What Is Your Level Of Caffeine Consumption? Occasional Information not available 05/04/2018 Education 12 Information no t available 05/04/2018 Which Of Your Hands Is Dominant? Right Information not available 05/04/2018 Live Alone Or With Others? With Others Information not available 05/04/2018 What Was The Date Of Your Most Recent Tobacco Screening? 05/13/2018 Information not available 01/28/2019 Sex: Unknown Functional Status Question Answer Note LastModified by Organization D etails LastModified Time What is your exercise level? Moderate Information not available 05/04/2018 Mental Status None recorded. Family History Nothing Reported. Medical History Condition Response Heart Problems N HIV or AIDS N Coronary Artery Disease N Gout N Prostate Disease N Hernia N Migraines N Thyroid Problems N Lung Disease N Depression Y Blood Clots N Pacemaker N Anemia Y Elevated Cholesterol N Have you had a blood transfusion since 980 N Ulcers Y Heart Attack ([place]) N Are you still having monthly menstral pe riods N Osteopenia N Anxiety Disorder Y Diabetes N Bleeding Disorder N In the event of surgery or h ospitalization, do you object to being tested for HIV? N Arthritis N Seizures/Epilepsy N Tuberculosis N Cancer N Urinary Tract Infection N Stroke N Asthma N Leg or Foot Ulcers N Metals or Jewelry Sensitivity N Peripheral Vascular Disease N Sleep Apnea N GERD/Reflux N Hepatitis N Liver Disease N Heart Disease N Rheumatoid Arthritis N Pulmonary Embolism N Hypertension N Osteoporosis N Kidney Disease N Gynecological HistoryNo gynecological history recorded. Obstetrics History GPAL:G 0 P 0 0 0 0 Past Encounters Encounter ID Performer Location Encounter Start Date Encounter Closed Date Diagnosis/Indication Diagnosis SNOMED-CT Code Diagnosis ICD10 Code Diagnosis Note [id number] Dawson Moise M.D. MAIN OFFICE [facility] [address],[address] [place] [address] 05/04/2018 14:58:55 05/04/2018 16:51:42 Stress fracture 71678616 M84.374A [id number] Dawson Moise M.D. MAIN OFFICE [facility]0 [facility] [address] [place] [address] 05/13/2018 15:32:47 05/13/2018 17:12:42 Stress fracture 539338327 M84.30XA Health Concerns Section Related Observation LastModified by Organization Detai ls LastModified Time None Recorded Concern Status LastModified by Organization Details LastModified Time None Recorded Advance Directives Directive None Recorded Payers Encounter Date Sequence Insurance Name Policy Number Policy Aguthier Covered Member ID Gauthier Member ID Guarantor Name 05/04/2018 1 [place] DIRECT ACCESS - PATHWAY X ENHANCED (HMO) [id number] Mayela Paniagua [id number] 35 Nelida Paniagua 05/13/2018 1 [place] DIRECT [place]ESS - PATHWAY X ENHANCED (HMO) [id number] Mayela Paniagua [id number] Nelida Paniagua Notes Date Note Type Note Provider Name and Address Organization Details Recorded Time 05/04/2018 text/html Nelida presents i n followup from the emergency room for evaluation of right forefoot pain. She began developing pain in January 2018. She had been doing a lot of hiking, but denies any specific injury or activity coincident with the onset of her symptoms. Her pain was intermittent, but has been recently worsening. She denies any previous problems or injuries relative to her foot and has had no treatment. She was placed in a boot recently upon being evaluated in the emergency room, but found this rather uncomfortable for her ankle and did not continue using it. Dawson Moise M.D. [address] [facility], [address], [place], [address], [facility] 05/08/2018 10:55:09 05/13/2018 text/html Nelida is being s een for right foot MRI review. Dawson Moise M.D. [address] [facility], [address], [place], [address], [facility] 05/15/2018 11:29:57 OBGyn Episode No OBEpisode recorded.
[2024-08-03 13:20] VITALS: BP 108/66; PULSE 66; TEMP 37.4; O2SAT 99
--- NOTE | 2024-08-03 13:20 | MHC.OFFWIV ---
Intake Vital Signs 08/03/24 13:20 Weight 151 lb BP 108/66 Blood Pressure Location Rt brachial Position Sitting Pulse 66 Pulse Source Pulse Oximeter Temp 99.4 F Temp Source Oral Pulse Oximetry (%) 99 Oxygen Delivery Method Room Air Intake Visit Reasons: EP-fever, sore throat, cough, headaches Intake Note: Patient here for congestion, cough, headaches and fevers that have been present for a couple of days. Patient Tobacco Use Status: Never used Tobacco Allergies amoxicillin Allergy (Unknown, Verified 08/03/24 13:21) Unknown penicillin V Allergy (Unknown, Verified 08/03/24 13:21) lack of effect No Known Allergies [No Known Allergies*] Allergy (Verified 08/03/24 13:21) Do you need a note to return to daycare/school/sports/work: No HPI HPI Comments History of Present Illness Details This is a 24-year-old female with no stated past medical history presenting for evaluation of sore throat, cough, headache, body aches and subjective fevers that she has had since Friday. Patient denies having any ear pain, chest pain or shortness of breath. Patient has been taking DayQuil and NyQuil without relief of her symptoms. Patient's last dose was approximately 30 minutes prior to this evaluation. [facility] Medical History Depression with anxiety Surgical History No pertinent past surgical history Social History Household Members: Family Housing: House Alcohol intake: current Alcohol intake frequency: a few times a month Alcohol type: hard liquor and other Patient Tobacco Use Status: Never used Tobacco e-Cigarette/Vaping Use: Never Used Second Hand Smoke Exposure: No Substance Use Type: Marijuana service: No Current occupational status: employed Current occupation: [email or web address] in [place] Current occupational exposures/hazards: No Sexual orientation: Straight/Heterosexual Gender identity: Female Cognitive needs: No Hearing needs: No Vision needs: No Female Reproductive History Menstrual Age of Menarche: 10 Review of Systems Const All systems reviewed & are unremarkable except as noted in HPI and below Reports as per HPI, Denies chills, Reports fatigue, Reports fever(s) (Subjective) and Reports headache(s) Eyes Reports no additional complaints ENT Reports no additional complaints, Denies otalgia, Reports headache(s) and Reports sore throat Card Reports no additional complaints Resp Reports no additional complaints, Reports cough, Denies hemoptysis and Denies wheezing GI Reports no additional complaints, Denies diarrhea, Reports nausea and Denies vomiting Reports no additional complaints Musc Reports no additional complaints Skin/Breast Reports system reviewed and no additional complaints, except as documented Neuro Reports no additional complaints and Reports headache(s) Psych Reports no additional complaints Endo Reports no additional complaints and Reports fatigue Aston/Lymph Reports no additional complaints Aller/Immun Reports no additional complaints and Denies wheezing Physical Exam Vital Signs: Last Vital Signs Temp 99.4 F 08/03/24 13:20 Pulse 66 08/03/24 13:20 BP 108/66 08/03/24 13:20 Pulse Ox 99 08/03/24 13:20 Oxygen Delivery Method Room Air 08/03/24 13:20 Const General: cooperative, comfortable, no acute distress, well developed, alert, awake, Physically active and tired appearing; No acute distress or ill appearing Nutritional Appearance: average body habitus Orientation/consciousness: patient oriented x3 Limitations: no limitations HEENT Head: Yes normal to inspection and Yes normocephalic Ears: hearing grossly normal bilaterally, external ears normal, TM's abnormal bilaterally (TMs bulging bilaterally without erythema) and EAC's normal General nose exam: Normal external nose present Face and sinus: Yes normal facial exam and Yes sinuses nontender Mouth: Normal oral and palatal mucosa present and oropharynx normal Throat: Yes posterior oropharynx normal and No postnasal drainage Eyes General: appearance normal, both eyes and all related structures Neck Lymphatic: no lymphadenopathy noted Resp Effort & Inspection: normal respiratory effort, able to speak in complete sentences, no audible wheezes, Actively coughing, respiratory effort not decreased and not tachypneic Auscultation: clear to auscultation bilaterally Cardio Rate: regular rate Rhythm: regular rhythm Skin General skin exam: no rashes or lesions noted Neuro General: patient oriented x3 Psych Appearance: grossly normal Mental Status: mental status grossly normal Insight: Good insight present (Psych) Judgement: Good judgement present (Psych) Assessment & Plan Assessment & Plan (1) Acute upper respiratory infection: Comment: SARS panel is ordered and results are pending. Patient educated about acetaminophen being present in both DayQuil and NyQuil and counseled to not take OTC Tylenol in addition. Code(s): J06.9 - Acute upper respiratory infection, unspecified Plan: Tylenol or ibuprofen as needed, hot tea with honey, increase clear fluids daily and Mucinex OTC. Orders: Orders SARS-CoV2/FLU/RSV Today J06.9 - Acute upper respiratory infection, unspecified Coding Level of Care Code Est Pt Level 3 (13643) Diagnoses Acute upper respiratory infection J06.9 Time Spent (min) 20
== END 2024-08-03 13:52 | disposition home or self-care (01) ==
PROVIDERS: PCP Physician Assistant; Visit Provider Physician Assistant
DX: J06.9 Acute upper respiratory infection, unspecified (principal)

== ENCOUNTER 2024-08-04 10:21 | Outpatient (REF) | payer OTHER, SELFPAY ==
[2024-08-04 11:38] LABS: Influenza A PCR POSITIVE (Negative); Influenza B PCR NEGATIVE (Negative); Resp Syncy Virus RNA Qual PCR NEGATIVE (Negative); SARS COV2 PCR INHOUSE NEGATIVE (Negative)
== END 2024-08-04 10:22 | disposition home or self-care (01) ==
LOC: HO.LNP 10:21
PROVIDERS: Visit Provider Physician Assistant
DX: J06.9 Acute upper respiratory infection, unspecified (principal)
CPT/HCPCS: 0241U

== ENCOUNTER 2024-08-04 17:18 | Outpatient (REF) | payer OTHER, SELFPAY | END 2024-08-04 17:19 | disposition home or self-care (01) | LOC: HO.LNP 17:18 | PROVIDERS: Visit Provider Physician Assistant | DX: Z13.89 Encounter for screening for other disorder (principal) ==

== ENCOUNTER 2024-08-06 11:39 | Outpatient (REF) | payer OTHER, SELFPAY ==
--- OUTSIDE RECORDS SUMMARY | 2024-08-06 12:22 | XMS_ITS | Data Portability ---
Author Organization [facility], [facility] Address [address] [place] [phone] Care Team Providers Care Civil Engineering Manager Name Role Phone DAWSON MOISE Orthopedic Surgeon [phone] Assessment Encounter Date Assessment Date Assessment LastModified [...] Imaging MRI, foot, w/o contrast - CPT: 91258IFD right foot no contrastR/ O stress fracture 2017 018 SOMMER Gotti MD, [address], [facility] [address], [place], [address], 8 14:57:48 Medication Orders None recorded. Patient TargetsNo targets recorded. Patient Instructions Encounter Date Encounter Id Patient Instructions Last Modified By Organization Details Last Modified Time 05/04/2018 [id number] [email or web address] Not available 05/08 10:54:52 Reason for Referral None Reported. Results Created Date Observation Date Name Description Value Unit Range Abnormal Flag Note LastModifiedBy Organization Detail LastModifiedTime 05/05/20 18 XR, foot, 3 or more view No observ ation record ed. [email or web address] Not Available 2017 10:41:08 05/12/20 18 05/11/2018 MRI, foot, w/o contr ast No observ ation record ed. Thomas Gotti MD [address] [facility] [address], [place], [address], 05/13/2018 18:38:54 Result Notes None recorded. Problems No Known Problems Procedures Surgical History None recorded. Imaging Results Imaging Date Name Status LastModified by Organiz ation Details LastModified Time 05/05/2018 XR, foot, 3 or more view completed [email or web address] Information not available 05/05/2018 10:41:08 05/11/2018 MRI, foot, w/o contrast completed Thomas Gotti MD [address] [facility] [address], [place], [address], 05/13/2018 18:38:54 Procedure Notes None recorded. Medical Equipment None Reported. Allergies No known drug allergies Medications Name Sig Start Date Stop Date Status Note LastModified by Organization Details LastModified Time Zoloft active Not Available Not Availa ble Not Available acyclovir active Not Available Not Priya ilable Not Available Vitals Date Recorded Body height Body mass index (BMI) Body weight Heart rate Systolic blood pressure Diastolic blood pressure Provider Name and Address Organization Details Last Updated DateTime 8 167.64 cm 21 kg/m2 73666.0 1 g 94 /min 107 mm[Hg] 84 mm[Hg] Edith Coleyvito [facility] 8 15:26:21 Date Recorded Body height Body mass index (BMI) Body weight Heart rate Systolic blood pressure Diastolic blood pressure Provider Name and Address Organization Details Last Updated DateTime 8 167.64 cm 21 kg/m2 24041.0 1 g 88 /min 110 mm[Hg] 80 mm[Hg] Edith Daniela [place] [facility] 8 15:36:48 Social History Question Answer Notes LastModified by Organizat ion Details LastModified Time Tobacco Smoking Status Never Smoker Edith StamfordDREW crespo [facility] 05/04/2018 15:26:40 What Is [...] Have you had a blood transfusion since N Ulcers Y Heart Attack ([place]) N Are you still having monthly menstral [...] SNOMED-CT Code Diagnosis ICD10 Code Diagnosis Note [id number] Dawson Moise M.D. MAIN OFFICE [address] [facility] [address] [place] [address] 05/04/2018 14:58:55 05/04/2018 16:51:42 Stress fracture [id number] M84.374A [id number] Dawson Moise M.D. MAIN OFFICE [facility] [address] [place] [address] 05/13/2018 15:32:47 05/13/2018 17:12:42 Stress fracture [id number] M84.30XA Health Concerns Section Related Observation LastModified by Organization Detai ls LastModified Time None Recorded Concern Status LastModified by Organization Details LastModified Time None Recorded Advance Directives Directive None Recorded Payers Encounter Date Sequence Insurance Name Policy Number Policy Gauthier Covered Member ID Gauthier Member ID Guarantor Name 05/04/2018 1 [place] [facility] DIRECT ACCESS - PATHWAY X ENHANCED (O) [id number] Mayela Siva [id number] 35 Nelida Siva 05/13/2018 1 [place] [facility] DIRECT ACCESS - PATHWAY X ENHANCED ([facility] [id number] Mayela Siva [id number] Nelida Siva Notes Date Note Type Note Provider Name [...] not continue using it. Dawson Moise M.D. [address] [facility], [address], [place], [address], [facility] 05/08/2018 10:55:09 05/13/2018 text/html Nelida is being s een for right foot MRI review. Dawson Moise M.D. [address] [facility], [address], [place], [address], [facility] 05/15/2018 11:29:57 OBGyn Episode No OBEpisode recorded.
[2024-08-06 15:38] LABS: CT PCR NOT DETECTED (Not Detect.); NG PCR NOT DETECTED (Not Detect.)
== END 2024-08-06 11:40 | disposition home or self-care (01) ==
LOC: HO.LAB 11:39
PROVIDERS: PCP Physician Assistant; Visit Provider Physician Assistant
DX: Z20.2 Contact with and (suspected) exposure to infections with a predominantly sexual mode of transmission (principal)
CPT/HCPCS: 87491; 87591

== ENCOUNTER 2024-09-10 14:07 | Outpatient (REF) | payer OTHER, SELFPAY ==
--- OUTSIDE RECORDS SUMMARY | 2024-09-10 15:47 | XMS_ITS | Data Portability ---
Author Organization [facility], [facility] Address [address] [place] [id number] Care Team Providers Care Patent Paralegal Name Role Phone DAWSON MOISE Orthopedic Surgeon [phone] Assessment Encounter Date Assessment Date Assessment LastModified [...] Imaging MRI, foot, w/o contrast - CPT: 84716TSR right foot no contrastR/ O stress fracture 2017 018 SOMMER Gotti MD, [address], [facility] [address], [place], [address], 8 14:57:48 Medication Orders None recorded. Patient TargetsNo targets recorded. Patient Instructions Encounter Date Encounter Id Patient Instructions Last Modified By Organization Details Last Modified Time 05/04/2018 [id number] [email or web address] Not available 05/08 10:54:52 Reason for Referral None Reported. Results Created Date Observation Date Name Description Value Unit Range Abnormal Flag Note LastModifiedBy Organization Detail LastModifiedTime 05/05/20 18 XR, foot, 3 or more view No observ ation record ed. [email or web address] Not Available 2017 10:41:08 05/12/20 18 05/11/2018 MRI, foot, w/o contr ast No observ ation record ed. Thomas Gotti MD [address] [facility] [address], [place], [address], 05/13/2018 18:38:54 Result Notes None recorded. Problems No Known Problems Procedures Surgical History None recorded. Imaging Results Imaging Date Name Status LastModified by Organiz ation Details LastModified Time 05/05/2018 XR, foot, 3 or more view completed [email or web address] Information not available 05/05/2018 10:41:08 05/11/2018 MRI, foot, w/o contrast completed Thomas Gotti MD [address] [facility] [address], [place], [address], 05/13/2018 18:38:54 Procedure Notes None recorded. Medical [...] Updated DateTime 8 167.64 cm 21 kg/m2 30547.0 1 g 94 /min 107 mm[Hg] 84 mm[Hg] Edith Coleyvito RUSSELL - [facility] 8 15:26:21 Date Recorded Body height Body mass index (BMI) Body weight Heart rate Systolic blood pressure Diastolic blood pressure Provider Name and Address Organization Details Last Updated DateTime 8 167.64 cm 21 kg/m2 38723.0 1 g 88 /min 110 mm[Hg] 80 mm[Hg] Edith Daniela [place] - [facility] 8 15:36:48 Social History Question Answer Notes LastModified by Organizat ion Details LastModified Time Tobacco Smoking Status Never Smoker Edith DanielaDREW crespo [facility] 05/04/2018 15:26:40 What [...] History Nothing Reported. Medical History Condition Response Coronary Artery Disease N HIV or AIDS N Heart Problems N Gout N Prostate Disease N Hernia N Migraines N Thyroid Problems N Lung Disease N Depression Y Blood Clots N Pacemaker N Anemia Y Elevated Cholesterol N Have you had a blood transfusion since N Heart Attack ([place]) N Ulcers Y Osteopenia N Are you still having monthly menstral pe riods N Anxiety Disorder Y Diabetes N Bleeding [...] SNOMED-CT Code Diagnosis ICD10 Code Diagnosis Note [id number] Dawson Moise M.D. MAIN OFFICE [address] [facility] [address] [place] [address] 05/04/2018 14:58:55 05/04/2018 16:51:42 Stress fracture [id number] M84.374A [id number] Dawson Moise M.D. MAIN OFFICE [facility] [address] [place] [address] 05/13/2018 15:32:47 05/13/2018 17:12:42 Stress fracture [id number] M84.30XA Health Concerns Section Related Observation LastModified by Organization Detai ls LastModified Time None Recorded Concern Status LastModified by Organization Details LastModified Time None Recorded Advance Directives Directive None Recorded Payers Encounter Date Sequence Insurance Name Policy Number Policy Gauthier Covered Member ID Gauthier Member ID Guarantor Name 05/04/2018 1 [place] - [facility] DIRECT ACCESS - PATHWAY X ENHANCED (O) [id number] Mayela Siva [id number] Nelida Siva 05/13/2018 1 [place] - [facility] DIRECT ACCESS - PATHWAY X ENHANCED ([facility]) [id number] Mayela Siva [id number] Nelida Siva Notes Date Note Type [...] not continue using it. Dawson Moise M.D. [address] [facility], [address], [place], [address], [facility] 05/08/2018 10:55:09 05/13/2018 text/html Nelida is being s een for right foot MRI review. Dawson Moise M.D. [address] [facility], [address], [place], [address], [facility] 05/15/2018 11:29:57 OBGyn Episode No OBEpisode recorded.
[2024-09-10 18:42] LABS: CT PCR NOT DETECTED (Not Detect.); NG PCR NOT DETECTED (Not Detect.)
[2024-09-11 08:21] LABS: Syphilis Screen Nonreactive (Nonreactive)
[2024-09-11 08:29] LABS: HBS Num1 34.13 mIU/mL (0-7.99); HBc Num1 0.14 S/CO (0.00-0.79); HBsAGNum1 0.29 S/CO (0.00-0.99); HIV AB/AG Nonreactive (Nonreactive); HIV Num 1 0.07 S/CO (0.00-0.99); Hepatitis B Core Antibody Nonreactive (Nonreactive); Hepatitis B Surface Antigen Negative (Negative); ~HepC Num1 0.23 S/CO (0.00-0.79); ~Hepatitis B Surface Antibody REACTIVE (Nonreactive); ~Hepatitis C Antibody Nonreactive (Nonreactive)
== END 2024-09-10 14:08 | disposition home or self-care (01) ==
LOC: HO.LAB 14:07
PROVIDERS: PCP Physician Assistant; Visit Provider Physician Assistant
DX: Z20.2 Contact with and (suspected) exposure to infections with a predominantly sexual mode of transmission (principal)
CPT/HCPCS: 86704; 86706; 86780; 86803; 87340; 87389; 87491; 87591

== ENCOUNTER 2024-10-07 08:02 | Outpatient (AMB) | payer OTHER, SELFPAY ==
[2024-10-07 08:06] VITALS: BP 108/72; PULSE 86; RESP 16; TEMP 36.2; O2SAT 97; BMI 23.7
--- NOTE | 2024-10-07 08:06 | MHC.PC.OV ---
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 Accompanied by: Self / Same As Patient Allergies amoxicillin Allergy (Unknown, Verified 10/07/24 08:20) Unknown penicillin V Allergy (Unknown, Verified 10/07/24 08:20) lack of effect Medication List - Last Reconciled 10/07/24 by Garrett Willoughby PA-C loratadine 10 mg PO DAILY lorazepam 0.5 mg PO DAILY PRN 5 days medroxyprogesterone (Depo-Provera) 150 mg IM Q12W 10 weeks sertraline 100 mg PO DAILY Tobacco use date assessed: 10/07/24 Dental Screening Dental Screen Date: 10/07/24 Did you have a dental visit in the last 12 months?: Yes Did you have a dental problem in the last 6 months where you did not have access to dental care?: No Was dental information given to patient?: Patient has dentist HPI annual exam HPI Details Patient is a 24 year female here today for a routine annual physical.? Past medical history significant depression, anxiety, GERD .. Concerns--> Have noted slightly low blood pressures. She reports experiencing recurrent episodes of dizziness upon standing, sometimes severe enough to cause falls, and has consistently low blood pressure. The patient expresses significant concerns about her joints' hypermobility, which she feels is impacting her life. She describes her thumbs as especially affected, frequently dislocating when gripping objects. She speculates about the possibility of Francisca-Danlos Syndrome but has not been diagnosed. She had a notable past instance of severe thumb pain, which necessitated a steroid injection due to work-related conditions. .. Recurrent pharyngitis: Has a few episodes of acute bacterial pharyngitis in 2023 that has required p.o. antibiotics. She has been referred to ENT in his awaiting appointment Depression/ Anxiety: Has been stable with zoloft for many years now.? She denies any SI or HI. .. .. 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 Medical History Depression with anxiety Surgical History No pertinent past surgical history Social History (Updated 10/07/24 @ 08:23 by Garrett Willoughby PA-C) Household Members: Family Housing: House Alcohol intake: current Alcohol intake frequency: a few times a month Alcohol type: hard liquor and other Patient Tobacco Use Status: Never used Tobacco e-Cigarette/Vaping Use: Never Used Second Hand Smoke Exposure: No Substance Use Type: Marijuana service: No Current occupational status: employed Current occupation: [employer] in [place] Current occupational exposures/hazards: No Sexual orientation: Straight/Heterosexual Gender identity: Female Cognitive needs: No Hearing needs: No Vision needs: No Female Reproductive History Menstrual Age of Menarche: 10 control method: progesterone injection Questionnaire PHQ-9 Over the last 2 weeks, how often have you been bothered by any of the following problems? 1. Little interest or pleasure in doing things: not at all 2. Feeling down, depressed, or hopeless: not at all 3. Trouble falling or staying asleep, or sleeping too much: nearly every day 4. Feeling tired or having little energy: nearly every day 5. Poor appetite or overeating: not at all 6. Feeling bad about yourself - or that you are a failure or have let yourself or your family down: not at all 7. Trouble concentrating on things, such as reading the newspaper or watching television: not at all 8. Moving or speaking so slowly that other people could have noticed. Or the opposite - being so fidgety or restless that you have been moving around a lot more than usual: not at all 9. Thoughts that you would be better off or of hurting yourself in some way: not at all Total score: 6 Depression Screening Interpretation: Positive Depression Screening Done: Yes 12417 - PHQ-9 Billing: Yes Source: Developed by Drs. Rodrigo Segovia, Michelle Aguero, Raffi Sahni and colleagues, with an educational mirna from [employer]. Thrive Questionnaire Date Thrive assessed: 10/07/24 I am a: Patient What is your living situation today?: I have a steady place to live Within the past 12 months, did the food you bought not last and you didn't have the money to get more?: Never true Within the past 12 months, did you worry whether your food would run out before you got money to buy more?: Never true Do you have trouble paying for medicines?: No Do you have trouble getting transportation to medical appointments?: No Do you have trouble paying your heating and electricity bill?: No Do you have trouble taking care of your child, family member or friend?: No Do you have trouble with day-to-day activities such as bathing, preparing meals, shopping, managing finances, etc.?: No Are you currently unemployed and looking for a job?: No Are you interested in more education?: Yes Please select the resources that you would like help with: None Currently or been in a relationship where the following occur: No concerns reported THRIVE Score: 0 AUDIT C Alcohol Use Questionnaire (AUDIT-C) 1. How often do you have a drink containing alcohol?: 2-3 times a week 2. How many drinks containing alcohol do you have on a typical day when you are drinking?: 3 or 4 3. How often do you have six or more drinks on one occasion?: Never Total Score: 4 RADAMES-7 AMB Questionnaire RADAMES-7 Date RADAMES - 7 assessed: 10/07/24 Feeling nervous, anxious, or on edge: 1 = Several days Not being able to stop or control worryin = Several days Worrying too much about different things: 1 = Several days Trouble relaxin = Several days Being so restless that it is hard to sit still: 1 = Several days Becoming easily annoyed or irritable: 1 = Several days Feeling afraid as if something awful might happen: 1 = Several days Total RADAMES-7 score (0-4 normal; 5-9 mild; 10-14 moderate; 15-21 severe): 7 Source: Developed by Drs. Rodrigo Segovia, Michelle Aguero, Raffi Sahni and colleagues, with an educational mirna from [employer]. RADAMES-7 Assessment Billing RADAMES-7 Assessment Tool: RADAMES-7 Assessment 31418 Review of Systems Const Denies body aches, Denies chills, Denies excessive sweating, Denies fatigue, Denies fever(s) and Denies headache(s) Eyes Denies blurry vision ENT Denies dysphagia, Denies vertigo, Reports dizziness, Denies headache(s), Denies hearing loss and Denies tinnitus Card Denies chest pain, Denies chest pain with activity, Denies syncope, Denies irregular heart rhythm and Denies dyspnea Resp Denies chest congestion, Denies cough, Denies hemoptysis, Denies dyspnea and Denies wheezing GI Denies abdominal pain, Denies melena, Denies hematochezia, Denies coffee ground emesis, Denies dysphagia, Denies diarrhea, Denies nausea and Denies vomiting Denies urinary frequency, Denies dysuria, Denies urinary hesitancy and Denies urinary urgency Musc Denies arthralgias, Denies limited range of motion, Denies muscle cramps and Denies muscle weakness Skin/Breast Denies rash and Denies skin ulcer Neuro Denies Abnormal speech present, Denies confusion, Denies vertigo, Reports dizziness, Denies syncope, Denies headache(s), Denies memory loss and Denies seizure-like activity Psych Denies anxiety, Denies confusion, Denies depression, Denies memory loss, Denies panic attacks and Denies paranoia Endo Denies excessive sweating, Denies fatigue, Denies flushing, Denies polydipsia and Denies polyuria Aller/Immun Denies wheezing Physical exam (Primary Care) Vital Signs: Last Vital Signs Temp 97.1 F 10/07/24 08:06 Pulse 86 10/07/24 08:06 Resp 16 10/07/24 08:06 BP 108/72 10/07/24 08:06 Pulse Ox 97 10/07/24 08:06 Oxygen Delivery Method Room Air 10/07/24 08:06 BMI result Body Mass Index 23.7 Tobacco/Smoking Status: Tobacco use Status Tobacco use date assessed 10/07/24 10/07/24 08:15 Patient Tobacco Use Status Never used Tobacco 10/07/24 08:15 e-Cigarette/Vaping Use Never Used 10/07/24 08:15 PHQ-9: PHQ-9 Score PHQ-9: Total score 6 10/07/24 08:15 Depression Screening Interpretation: Positive Thrive Assessment: Date of Thrive Assessment Date Thrive assessed 10/07/24 10/07/24 08:15 Currently or been in a relationship where the following occur: No concerns reported Const General: cooperative, comfortable, no acute distress, alert and awake; No confusion Orientation/consciousness: oriented to person, oriented to place, patient oriented x3 and No confusion HENMT Head: Yes normocephalic Ears: external ears normal and TM's normal bilaterally Face and sinus: No sinus tenderness Mouth: Normal oral and palatal mucosa present and tongue normal Teeth and gingiva: dentition normal and gingiva normal Throat: Yes posterior oropharynx normal, Yes tonsils normal and Yes uvula midline Eyes Conjunctivae: conjunctivae normal Sclerae: sclerae normal Pupils: Equal, round and reactive pupils present EOM: EOMs intact bilaterally Direct Ophthalmoscopy: No no photophobia Neck Neck: Yes no lymphadenopathy, No tender and Yes no JVD Thyroid: Thyroid normal Carotids: no bruits Chest Chest palpation & inspection: no tenderness Resp Effort & Inspection: normal respiratory effort, no audible wheezes, not labored and no stridor Auscultation: no crackles, no rales, no rhonchi and no wheezes Cardio Jugular venous distension: no JVD Rate: regular rate, not bradycardic and not tachycardic Rhythm: regular rhythm Bruits: no carotid bruits Peripheral pulses: Peripheral pulses 2+ throughout GI Inspection: Yes normal to inspection, No abdominal wall ecchymosis and No visible herniation Palpation (GI): Soft to palpation, nontender, no guarding, not rigid and No hepatosplenomegaly present Auscultation: normoactive bowel sounds General: Yes no CVA tenderness Back/Spine/Pelvis Back: no CVA tenderness and No back tenderness Cervical Spine: cervical ROM normal Thoracic/Lumbar Spine: thoracic and lumbar spine normal to inspection, straight leg raise negative bilaterally, No thoraco-lumbar ROM limited and No lumbar spinal tenderness Skin Lesions: no lesions Rashes: no rashes Wounds: no wounds Neuro General: oriented to person, oriented to place, patient oriented x3, CN's II-XI intact bilaterally and No confusion Cranial nerves: Yes Equal, round and reactive pupils present and Yes Normal accommodation reflex present Cognition (Neuro): normal cognition Speech: No Abnormal speech present Gait exam (Neuro): Normal gait present Motor exam (neuro): 5/5 motor strength present throughout Extrem Other: HYPER FLEXIBILITY OF THE THUMBS NOTED. Right upper extremity: full ROM; no cyanosis Left upper extremity: full ROM; no cyanosis Right lower extremity: no edema Left lower extremity: no edema Psych Appearance: grossly normal Mental Status: mental status grossly normal Affect: normal affect Attitude: cooperative Thought process: Normal thought process present Coding Level of Care Code Est Pt Prev Care 18-39y(13057) Diagnoses Annual physical exam Z00.00 Screening for diabetes mellitus (DM) Z13.1 Iron deficiency anemia due to chronic blood loss D50.0 Anemia type: iron deficiency Iron deficiency anemia type: chronic blood loss RADAMES (generalized anxiety disorder) F41.1 Bilateral hand pain M79.641; M79.642 Additional Codes RADAMES-7 Assessment Billing - RADAMES-7 Assessment Tool: RADAMES-7 Assessment 22771 ([id number]) PHQ-9 - 93517 - PHQ-9 Billing: Yes ([id number]) Assessment & Plan Assessment & Plan (1) Annual physical exam: Code(s): Z00.00 - Encounter for general adult medical examination without abnormal findings Category: Medical Plan: As per HPI (2) Screening for diabetes mellitus (DM): Code(s): Z13.1 - Encounter for screening for diabetes mellitus Category: Medical Plan: As per HPI (3) Anemia: Code(s): D64.9 - Anemia, unspecified Category: Medical Qualifiers: Anemia type: iron deficiency Iron deficiency anemia type: chronic blood loss Qualified Code(s): D50.0 - Iron deficiency anemia secondary to blood loss (chronic) Plan: Patient does have history of anemia secondary to her heavy menstruations. She is now on Depo-Provera (4) RADAMES (generalized anxiety disorder): Code(s): F41.1 - Generalized anxiety disorder Category: Medical Plan: Patient's RADAMES-7 score positive for anxiety which has been existing condition for her. She continues on SSRI therapy with good effect on reducing her anxiety and depression. She does have lorazepam available to her to use for emergency basis only. (5) Bilateral hand pain: Code(s): M79.641 - Pain in right hand; M79.642 - Pain in left hand Category: Medical Plan: Plan includes referral to occupational therapy for joint issues, with potential imaging and autoimmune testing if symptoms continue. Orders: Orders XR hand RT 2V Today M79.641 - Pain in right hand, M79.642 - Pain in left hand IRON PROFILE Today D50.0 - Iron deficiency anemia secondary to blood loss (chronic), D50.9 - Iron deficiency anemia, unspecified Comprehensive [place]. Panel Fast Today Z13.1 - Encounter for screening for diabetes mellitus OT Evaluation and Treatment Today M79.641 - Pain in right hand, M79.642 - Pain in left hand ROCHELLE Reflex Titer and Pattern Today M79.641 - Pain in right hand, M79.642 - Pain in left hand XR hand LT 2V Today M79.641 - Pain in right hand, M79.642 - Pain in left hand Complete Blood Count no Diff Today D50.0 - Iron deficiency anemia secondary to blood loss (chronic) Cyclic Citrullinated Peptide Today M79.641 - Pain in right hand, M79.642 - Pain in left hand Rheumatoid Factor Today M79.641 - Pain in right hand, M79.642 - Pain in left hand DNA Double Stranded-Crithidia Today M79.641 - Pain in right hand, M79.642 - Pain in left hand Medications: Refilled loratadine 10 mg PO DAILY 30 tabs 0RF R09.82 - Postnasal drip
--- OUTSIDE RECORDS SUMMARY | 2024-10-07 08:06 | XMS_ITS | Data Portability ---
Author Organization [facility], [facility] Address [address] [place] [phone] Care Team Providers Care Band Sawyer Name Role Phone DAWSON MOISE Orthopedic Surgeon [...] Imaging MRI, foot, w/o contrast - CPT: 25439RBZ right foot no contrastR/ O stress fracture 2017 018 SOMMER Gotti MD, [address], [facility] [address], [place], [address], 8 14:57:48 Medication Orders None recorded. Patient TargetsNo targets recorded. Patient Instructions Encounter Date Encounter Id Patient Instructions Last Modified By Organization Details Last Modified Time 05/04/2018 [id number] [email or web address] Not available 05/08 10:54:52 Reason for Referral None Reported. Results Created Date Observation Date Name Description Value Unit Range Abnormal Flag Note LastModifiedBy Organization Detail LastModifiedTime 05/05/20 18 XR, foot, 3 or more view No observ ation record ed. [email or web address] Not Available 2017 10:41:08 05/12/20 18 05/11/2018 MRI, foot, w/o contr ast No observ ation record ed. Thomas Gotti MD [address] [facility] [address], [place], [address], 05/13/2018 18:38:54 Result Notes None recorded. Problems No Known Problems Procedures Surgical History None recorded. Imaging Results Imaging Date Name Status LastModified by Organiz ation Details LastModified Time 05/05/2018 XR, foot, 3 or more view completed [email or web address] Information not available 05/05/2018 10:41:08 05/11/2018 MRI, foot, w/o contrast completed Thomas Gotti MD [address] [facility] [address], [place], [address], 05/13/2018 18:38:54 Procedure Notes None recorded. Medical [...] Updated DateTime 8 167.64 cm 21 kg/m2 55256.0 1 g 94 /min 107 mm[Hg] 84 mm[Hg] Edith Coleyvito RUSSELL - [facility] 8 15:26:21 Date Recorded Body height Body mass index (BMI) Body weight Heart rate Systolic blood pressure Diastolic blood pressure Provider Name and Address Organization Details Last Updated DateTime 8 167.64 cm 21 kg/m2 92359.0 1 g 88 /min 110 mm[Hg] 80 [...] History Condition Response Coronary Artery Disease N Heart Problems N HIV or AIDS N Gout N Prostate Disease N Hernia N Migraines N Thyroid Problems N Depression Y Blood Clots N Lung Disease N Pacemaker N Anemia Y Elevated Cholesterol N Have you had a blood transfusion since N Ulcers Y Heart Attack ([place]) N Are you still having monthly menstral pe riods N Osteopenia N Anxiety Disorder Y Diabetes N Bleeding Disorder N In the event of surgery or h ospitalization, do you object to being tested for HIV? N Seizures/Epilepsy N Arthritis N Tuberculosis N Cancer N Urinary Tract [...] SNOMED-CT Code Diagnosis ICD10 Code Diagnosis Note [id number] Dawson Moise M.D. MAIN OFFICE [address] [facility] [address] [place] [address] 05/04/2018 14:58:55 05/04/2018 16:51:42 Stress fracture [id number] M84.374A [id number] Dawson Moise M.D. MAIN OFFICE [facility]0 [facility] [address] [place] [address] 05/13/2018 15:32:47 05/13/2018 17:12:42 Stress fracture [id number] M84.30XA Health Concerns Section Related Observation LastModified by Organization Detai ls LastModified Time None Recorded Concern Status LastModified by Organization Details LastModified Time None Recorded Advance Directives Directive None Recorded Payers Encounter Date Sequence Insurance Name Policy Number Policy Gauthier Covered Member ID Gauthier Member ID Guarantor Name 05/04/2018 1 [place] [facility] DIRECT ACCESS - PATHWAY X ENHANCED (O) [id number] Mayela Siva [id number] 35 Nelida Siva 05/13/2018 1 [place] - [facility] DIRECT ACCESS - PATHWAY X ENHANCED ([facility] [id number] Mayela Siva [id number] Nelida Siva Notes Date Note Type [...] not continue using it. Dawson Moise M.D. [address] [facility], [address], [place], [address], [facility] 05/08/2018 10:55:09 05/13/2018 text/html Nelida is being s een for right foot MRI review. Dawson Moise M.D. [address] [facility], [address], [place], [address], [facility] 05/15/2018 11:29:57 OBGyn Episode No OBEpisode recorded.
== END 2024-10-07 08:38 | disposition home or self-care (01) ==
LOC: HO.HMCH 08:02
PROVIDERS: PCP Physician Assistant; Visit Provider Physician Assistant
DX: Z00.00 Encounter for general adult medical examination without abnormal findings (principal); Z13.1 Encounter for screening for diabetes mellitus; D50.0 Iron deficiency anemia secondary to blood loss (chronic); F41.1 Generalized anxiety disorder; M79.641 Pain in right hand; M79.642 Pain in left hand

== ENCOUNTER → 2024-10-07 08:02 | Outpatient (BNVA) | payer OTHER, SELFPAY | PROVIDERS: PCP Physician Assistant; Visit Provider Physician Assistant | DX: Z00.00 Encounter for general adult medical examination without abnormal findings (principal); D50.0 Iron deficiency anemia secondary to blood loss (chronic); F41.1 Generalized anxiety disorder; M79.641 Pain in right hand; M79.642 Pain in left hand | CPT/HCPCS: 96127 ==

== ENCOUNTER 2024-12-14 14:16 | Emergency (ER) | payer OTHER, SELFPAY ==
[2024-12-14 14:58] VITALS: BP 148/80; PULSE 62; RESP 18; TEMP 36.6; O2SAT 99; BMI 21.8
--- NOTE | 2024-12-14 15:02 | ED_ITS ---
HPI - General Adult General Chief complaint: General Medical Stated complaint: Rabies exposure Time Seen by Provider: 12/14/24 15:08 Source: patient and RN notes reviewed Mode of arrival: ambulatory Limitations: no limitations History of Present Illness ED Provider: Carolin Mijares PA-C [facility] narrative: This is a 24-year-old female, with no known medical problems, who presents emergency department after exposure to bat on December 09. Patient states that she was sleeping in her bed and awoke and noticed a bat was flying around her bedroom. She is unsure if she was bit by the bat. She denies any bites, or rashes. She is feeling well. She has never been vaccinated against rabies in the past. Denies risk of . No other complaints or concerns at this time. MD complaint: Possible rabies exposure Pain Consistency: constant Relieving factors: none Exacerbating factors: none Associated symptoms: denies other symptoms Treatments prior to arrival: none Related Data Previous Rx's ?Medication ?Instructions ?Recorded medroxyprogesterone 150 mg/mL 150 mg IM Q12W 10 weeks #1 mL 01/31/23 intramuscular suspension (Depo-Provera) sertraline 100 mg tablet 100 mg PO DAILY #90 tabs 02/26/24 loratadine 10 mg tablet 10 mg PO DAILY #30 tabs 10/07/24 lorazepam 0.5 mg tablet 0.5 mg PO DAILY PRN anxiety 7 days 12/13/24 #7 tabs Allergies Allergy/AdvReac Type Severity Reaction Status Date / Time amoxicillin Allergy Unknown Unknown Verified 12/14/24 15:01 penicillin V Allergy Unknown lack of Verified 12/14/24 15:01 effect Review of Systems Review of Systems: Yes all other systems are reviewed and are negative Constitutional: Constitutional: Reports as per [facility] Past Medical History Attestation statement: The following information was validated with the patient. Medical History Depression with anxiety Surgical History No pertinent past surgical history Social History Social History Household Members: Family Housing: House Alcohol intake: current Alcohol intake frequency: a few times a month Alcohol type: hard liquor and other Patient Tobacco Use Status: Never used Tobacco e-Cigarette/Vaping Use: Never Used Second Hand Smoke Exposure: No Substance Use Type: Marijuana Advance Directives: No Advance Directives Information Provided: No service: No Current occupational status: employed Current occupation: [employer] in [place] Current occupational exposures/hazards: No Sexual orientation: Straight/Heterosexual Gender identity: Female Cognitive needs: No Hearing needs: No Vision needs: No Physical Exam ED Vital Signs: Vital Signs - 24 hr 12/14/24 14:58 12/14/24 16:03 Temperature 97.9 F 97.9 F Pulse Rate 62 62 Respiratory Rate 18 18 Blood Pressure 148/80 H 148/80 H Pulse Oximetry 99 99 Oxygen Delivery Method Room Air Room Air BMI result Body Mass Index 21.8 Const Other: General: Awake, alert, and oriented X3. No acute distress. HEENT: Normal inspection CVS: Normal heart rate and rhythm. Pulses normal. Respiratory: No respiratory distress Skin: Warm, dry, no rashes noted to exposed skin. Normal skin color. Normal skin turgor. Extremities: Normal to inspection Neuro: Oriented X 3. No motor deficit. No sensory deficit. Course Course Course Narrative: RME: 24 yold female Medications Administered Discontinued Medications Generic Name Dose Route Start Last Admin Trade Name Freq PRN Reason Stop Dose Admin Rabies Immune Globulin 1,224.7 unit 12/14/24 15:03 12/14/24 15:50 Rabies Immune Globulin/Pf 900 Unit/3 Ml Vial 20 unit/kg (1224.7 unit) 12/14/24 15:04 1,224.7 unit IM Administration ONCE ONE Rabies Vaccine 1 ml 12/14/24 15:03 12/14/24 15:47 Rabies Vaccine (Pcec)/Pf 1 Ml Vial IM 12/14/24 15:04 1 ml .ONCE ONE Administration Medical Decision Making Medical Decision Making MDM Narrative: This is a 24-year-old female who presents emergency department after possible exposure to rabies. She awoke and realize that she there was a bat flying around her. She is unsure if she was bit by the bat. She states that she is feeling well. On arrival, blood pressure mildly elevated at 140 8/80, she has no current complaints. Given possible exposure to rabies, will administer immunoglobulin as well as rabies vaccine. She will follow-up with the [facility] for further rabies vaccines. Given strict return precautions. Patient stable for discharge. Differential Diagnosis Differential Diagnoses: The differential diagnosis associated with the presentation includes Rabies exposure, wellness check, animal bite Discharge Plan Discharge Clinical Impression: Rabies exposure Patient Disposition: Home, Self-Care Instructions: Rabies (ED) Additional Instructions: You were seen in the ER after being exposed to a bat. We are starting you on the rabies series. Please follow-up with the work [facility]. [place] with [place] [facility]: Upon discharge from the ED today, you will be contacted by the Infusion Center to schedule your follow up Rabies vaccines. You will need a total of 3 more injections. If for some reason you do not receive a call, please call the Infusion Center directly at [phone]. Follow up with your primary care provider after completion of the vaccine to have a titer drawn to ensure the vaccines effectiveness. Prescriptions: No Action sertraline 100 mg tablet 100 mg PO DAILY Qty: 90 2RF lorazepam 0.5 mg tablet 0.5 mg PO DAILY PRN (Reason: anxiety) 7 Days Qty: 7 0RF medroxyprogesterone [Depo-Provera] 150 mg/mL suspension 150 mg IM Q12W 70 Days Qty: 1 2RF loratadine 10 mg tablet 10 mg PO DAILY Qty: 30 0RF Interventions: ED Discharge Assessment Last Done: 12/14/24 16:03 Discharge Date/Time: 12/14/24 16:03 Print Language: Chadian
[2024-12-14] MEDS: Rabies Vaccine (PCEC)/PF 1 ML VIAL IM (15:47)
[2024-12-14] MEDS: Rabies Immune Globulin/PF 900 UNIT/3 ML VIAL 1224.7 UNIT IM (15:50)
[2024-12-14 16:03] VITALS: BP 148/80; PULSE 62; RESP 18; TEMP 36.6; O2SAT 99
--- OUTSIDE RECORDS SUMMARY | 2024-12-14 18:29 | XMS_ITS | Data Portability ---
Author Organization [facility], [facility] Address [address] [place] [id number] Care Team Providers Care Cut Off Sawyer Name Role Phone DAWSON MOISE Orthopedic [...] Imaging MRI, foot, w/o contrast - CPT: 28267IPZ right foot no contrastR/ O stress fracture 2017 018 SOMMER Gotti MD, [address], [facility] [address], [place], [address], 8 14:57:48 Medication Orders None recorded. Patient TargetsNo targets recorded. Patient Instructions Encounter Date Encounter Id Patient Instructions Last Modified By Organization Details Last Modified Time 05/04/2018 [id number] [email or web address] Not available 05/08 10:54:52 Reason for Referral None Reported. Results Created Date Observation Date Name Description Value Unit Range Abnormal Flag Note LastModifiedBy Organization Detail LastModifiedTime 05/05/20 18 XR, foot, 3 or more view No observ ation record ed. [email or web address] Not Available 2017 10:41:08 05/12/20 18 05/11/2018 MRI, foot, w/o contr ast No observ ation record ed. Thomas Gotti MD [address] [facility] [address], [place], [address], 05/13/2018 18:38:54 Result Notes None recorded. Problems No Known Problems Medical Equipment None Reported. Allergies No known [...] Updated DateTime 8 167.64 cm 21 kg/m2 19306.0 1 g 94 /min 107 mm[Hg] 84 mm[Hg] Edith Suarez [facility] 8 15:26:21 Date Recorded Body height Body mass index (BMI) Body weight Heart rate Systolic blood pressure Diastolic blood pressure Provider Name and Address Organization Details Last Updated DateTime 8 167.64 cm 21 kg/m2 56238.0 1 g 88 /min 110 mm[Hg] 80 mm[Hg] Edith Suarez [facility] 8 15:36:48 Social History Question Answer Notes LastModified by Organizat ion Details LastModified Time Tobacco Smoking Status Never Smoker [facility] 05/04/2018 15:26:40 How Many Years Have You Consumed Alcohol? [...] D etails LastModified Time What is your level of alcohol consumption? None Information not available 05/04/2018 What is your exercise level? Moderate Information not available 05/04/2018 Mental Status None recorded. Family History Nothing Reported. Medical History Condition Response HIV or AIDS N Coronary Artery Disease N Heart Problems N Gout N Prostate Disease N Hernia N Migraines N Thyroid Problems N Depression Y Blood Clots N Lung Disease N Pacemaker N Anemia Y Elevated Cholesterol N Have you had a blood transfusion since [address] [place]) N Ulcers Y Are you still having monthly menstral pe [...] SNOMED-CT Code Diagnosis ICD10 Code Diagnosis Note [id number] Dawson Moise M.D. MAIN OFFICE [address] [facility] [address] [place] [address] 05/04/2018 14:58:55 05/04/2018 16:51:42 Stress fracture [id number] M84.374A [id number] Dawson Moise M.D. MAIN OFFICE [address] [facility] [address] [place] [address] 05/13/2018 15:32:47 05/13/2018 17:12:42 Stress fracture [id number] M84.30XA Health Concerns Section Related Observation LastModified by Organization Detai ls LastModified Time None Recorded Concern Status LastModified by Organization Details LastModified Time None Recorded Advance Directives Directive None Recorded Payers Encounter Date Sequence Insurance Name Policy Number Policy Gauthier Covered Member ID Gauthier Member ID Guarantor Name 05/04/2018 1 [place] - [facility] [place] DIRECT ACCESS - PATHWAY X ENHANCED (O) [id number] Mayela Siva [id number] Nelida Siva 05/13/2018 1 [place] DIRECT ACCESS - PATHWAY X ENHANCED (O) [id number] Mayela Siva [id number] Nelida Siva Notes Date Note Type [...] not continue using it. Dawson Moise M.D. [address] [facility], [address], [place], [address], [facility] 05/08/2018 10:55:09 05/13/2018 text/html Nelida is being s een for right foot MRI review. Dawson Moise M.D. [address] [facility], [address], [place], [address], [place] [facility] 05/15/2018 11:29:57 OBGyn Episode No OBEpisode recorded.
== END 2024-12-14 16:03 | disposition home or self-care (01) ==
PROVIDERS: Emergency Provider Emergency Medicine Emergency Medical Services; PCP Physician Assistant
DX: Z20.3 Contact with and (suspected) exposure to rabies (principal); Z23 Encounter for immunization
CPT/HCPCS: 90375; 90471; 90675; 96372; 99282; 99284

== ENCOUNTER 2024-12-28 14:45 | Outpatient (RCR) | payer OTHER, SELFPAY ==
[2024-12-17 14:42] VITALS: BP 111/78; PULSE 73; RESP 16; TEMP 36.7; O2SAT 98
[2024-12-17] MEDS: Rabies Vaccine (PCEC)/PF 1 ML VIAL IM (14:45)
[2024-12-21 14:30] VITALS: BP 129/70; PULSE 66; RESP 16; TEMP 36.8; O2SAT 100
[2024-12-21] MEDS: Rabies Vaccine (PCEC)/PF 1 ML VIAL IM (14:31)
[2024-12-28 14:19] VITALS: BP 103/50; PULSE 80; RESP 18; TEMP 36.6
[2024-12-28] MEDS: Rabies Vaccine (PCEC)/PF 1 ML VIAL IM (14:20)
== END 2024-12-30 13:24 | disposition home or self-care (01) ==
LOC: HO.INF 14:45
PROVIDERS: Visit Provider Physician Assistant Medical
DX: Z20.3 Contact with and (suspected) exposure to rabies (principal)
CPT/HCPCS: 90471; 90675

== ENCOUNTER 2025-03-05 09:19 | Outpatient (AMB) | payer OTHER, SELFPAY ==
[2025-03-05 09:54] VITALS: BP 98/60; PULSE 84; RESP 16; TEMP 36.9; O2SAT 98; BMI 22.3
--- NOTE | 2025-03-05 09:54 | AM.OFFWIN_ITS ---
Intake Vital Signs 3 03/05/25 09:54 Height 5 ft 6 in Weight 138 lb BMI 22.3 BP 98/60 Blood Pressure Location Lt brachial Position Sitting Respiration 16 Pulse 84 Pulse Source Pulse Oximeter Temp 98.4 F Temp Source Oral Pulse Oximetry (%) 98 Oxygen Delivery Method Room Air Intake Visit Reasons: EP Cat bite infected, inner thigh Intake Note: Pt is here today c/o cat bite infected Rt inner thigh since Patient Tobacco Use Status: Never used Tobacco Allergies amoxicillin Allergy (Unknown, Verified 03/05/25 10:55) Unknown penicillin V Allergy (Unknown, Verified 03/05/25 10:55) lack of effect Medication List - Last Reconciled 03/05/25 by SHANNA Huerta- loratadine 10 mg PO DAILY lorazepam 0.5 mg PO DAILY PRN 7 days sertraline 100 mg PO DAILY HPI HPI Comments 2 History of Present Illness0 Details History of Present Illness - The patient is a 24-year-old female pr esenting with a cat bite wound. - Cat bite occurred on night; c at confirmed rabies-free. - Wound cleaned with antimicrobial soap; Neosporin and bandage applied. - Allergic to Amoxicillin and Penicillin . - UTD on TDap Review of Systems - Skin/Integumentary: Reports a cat bite wound on the skin. Uses antimicrobial soap and Neosporin. - Gastrointestinal: Denies current issue s but advised that prescribed antibiotics may cause stomach upset. - Immunizations: Reports having had a te tanus shot within the last 10 years. Physical Exam Right inner thigh right lower leg Discussion Notes I discussed with the patient that the cat has been confirmed to be free of rabies as it was sourced from a long term with necessary health checks. We proceeded with the management plan involving prescribing Bactrim and Clindamycin due to the patient's allergy to Amoxicillin and Penicillin. These antibiotics were selected because they are alternatives to the patient's known allergens. I advised the patient that both antibiotics might cause stomach discomfort, emphasizing the importance of taking them with food. Instructions were provided to keep the wound bandaged for the next two days and to avoid any frictional exposure to ensure proper healing. I informed her that should symptoms like fever, chills, or increasing redness arise, a re-evaluation would be necessary. I also explained that cat bites are considered potentially infectious; thus, prophylactic antibiotics were initiated. I assured her that her tetanus immunization was up-to-date. Patient was given time to ask questions. All questions were answered to their satisfaction. Assessment and Plan 1. Cat bite wound - Prescribe Bactrim BID and Clindamycin TID. - Advise antibiotics with food intake. - Bandage wound for two days then keep O TA - Monitor for infection symptoms. Patient Instructions - Take antibiotics with food. - Keep the wound covered with a bandage for two days. - Monitor for symptoms like fever or red ness and seek care if they occur. - Return to the clinic if symptoms worse n. Consent Patient was informed and verbally consented to the use of an ambient scribe for clinic note documentation during this visit. [facility] Medical History Depression with anxiety Surgical History No pertinent past surgical history Social History Household Members: Family Housing: House Alcohol intake: current Alcohol intake frequency: a few times a month Alcohol type: hard liquor and other Patient Tobacco Use Status: Never used Tobacco e-Cigarette/Vaping Use: Never Used Second Hand Smoke Exposure: No Substance Use Type: Marijuana service: No Current occupational status: employed Current occupation: [employer] in [employer] Current occupational exposures/hazards: No Sexual orientation: Straight/Heterosexual Gender identity: Female Cognitive needs: No Hearing needs: No Vision needs: No Female Reproductive History Menstrual Age of Menarche: 10 Physical Exam Vital Signs: Last Vital Signs Temp 98.4 F 03/05/25 09:54 Pulse 84 03/05/25 09:54 Resp 16 03/05/25 09:54 BP 98/60 03/05/25 09:54 Pulse Ox 98 03/05/25 09:54 Oxygen Delivery Method Room Air 03/05/25 09:54 BMI result Body Mass Index 22.3 Assessment & Plan Assessment & Plan (1) Cat bite: Code(s): W55.01XA - Bitten by cat, initial encounter Qualifiers: Encounter type: initial encounter Qualified Code(s): W55.01XA - Bitten by cat, initial encounter (2) Up to date with tetanus vaccination: Code(s): Z92.29 - Personal history of other drug therapy Plan . Medications: New 2 sulfamethoxazole-trimethoprim 800-160 mg (Bactrim DS) 1 tab PO BID 14 tabs 0RF 7 days clindamycin HCl 300 mg PO Q8H 21 caps 0RF 7 days Coding Level of Care Code Est Pt Level 3 (19196) Diagnoses Cat bite, initial encounter W55.01XA Encounter type: initial encounter Up to date with tetanus vaccination Z92.29
== END 2025-03-05 11:17 | disposition home or self-care (01) ==
PROVIDERS: PCP Physician Assistant; Visit Provider Nurse Practitioner Family
DX: S71.151A Open bite, right thigh, initial encounter (principal); W55.01XA Bitten by cat, initial encounter; Z92.29 Personal history of other drug therapy

== ENCOUNTER 2025-03-13 10:29 | Inpatient (IN) | payer OTHER, SELFPAY ==
[2025-03-13] VITALS (13 sets, daily range): BP systolic 105–125; BP diastolic 57–85; PULSE 71–97; RESP 12–25; TEMP 36.8–36.9; O2SAT 97–100; BMI 21.8
--- NOTE | ~2025-03-13 | CT_ITS ---
CLINICAL HISTORY: severe pain s p epi injection --- Additional Notes or Special Instructions: ?necrotizing fasciitis RASH AND PAIN AFTER MEDICATION INJECTION CT right upper extremity with contrast Comparison: None Findings: CT evaluation of the right upper extremity from the level of the shoulder to the level of the metacarpals of the hand. There are multiple tiny pockets of gas within the soft tissues of the deltoid muscle. No obvious associated edema. No evidence of abscess. Remaining soft tissues are unremarkable. There is no shoulder or elbow effusion. No fracture, dislocation or evidence of osteomyelitis. No significant degenerative changes. Unremarkable visualized right lung. Impression: 1. There are multiple tiny pockets of gas within the soft tissues of the right deltoid of uncertain etiology. Necrotizing infection not excluded. This document has been electronically signed by: Mague Manzanares MD on 03/13/2025 15:39:56
--- NOTE | ~2025-03-13 | CT_ITS ---
CLINICAL HISTORY: severe pain, s p epi inject --- Additional Notes or Special Instructions: ?necrotizing fasciitis IMAGES ARE ALL UNDER HUMERUS CT right upper extremity with contrast Comparison: None Findings: CT evaluation of the right upper extremity from the level of the shoulder to the level of the metacarpals of the hand. There are multiple tiny pockets of gas within the soft tissues of the deltoid muscle. No obvious associated edema. No evidence of abscess. Remaining soft tissues are unremarkable. There is no shoulder or elbow effusion. No fracture, dislocation or evidence of osteomyelitis. No significant degenerative changes. Unremarkable visualized right lung. Impression: 1. There are multiple tiny pockets of gas within the soft tissues of the right deltoid of uncertain etiology. Necrotizing infection not excluded. This document has been electronically signed by: Mague Manzanares MD on 03/13/2025 16:17:07
--- NOTE | 2025-03-13 10:46 | ED_ITS ---
HPI - Allergic Reaction General Chief complaint: Allergic Reaction Stated complaint: allergic reaction Time Seen by Provider: 03/13/25 10:42 Source: patient and RN notes reviewed Mode of arrival: ambulatory Limitations: no limitations History of Present Illness ED Provider: Carolin Mijares PA-C HPI narrative: This is a 24-year-old female, with a history of anxiety and depression, who presents emergency department with concerns of ?allergic reaction which started 24 hours ago. Patient reports that she is slowly decreasing herself off of a SSRI, and just started on desvenlafaxine which she took yesterday at 11:00 a.m.. She states that she started to develop an itchy rash approximately 1 hour after taking this medication. Patient states that since then she has had persistent itchy rash despite multiple doses of Benadryl. She denies any shortness for breath. She does report some tingling in her lips. No difficulty swallowing or breathing. Denies history of similar symptoms in the past. Denies history of similar symptoms in the past. She had a total hysterectomy. No sore throat. No recent fevers, chills, chest pain, shortness of breath, abdominal pain, nausea, vomiting or diarrhea. Patient does report that she was bit by a cat 1 week ago on her right posterior leg, she was started on clindamycin which she has been taking. She also reported she was on a medication known as sudamed initially thought to be sudafed, but this was re-checked and patient had been prescribed bactrim DS. She also states that she already had the rabies series as she was exposed to a bat over the summer. She denies chance of as she had a total hysterectomy. No other complaints or concerns at this time. complaint: allergic reaction and hives Onset (ago): day(s) Exposure: medication Symptoms: rash and itching Severity: moderate Previous Allergic Reaction History: none Related Data Home Medications ?Medication ?Instructions ?Recorded ?Confirmed loratadine 10 mg tablet 10 mg PO DAILY PRN Allergies 03/13/25 03/13/25 trazodone 100 mg tablet 100 mg PO BEDTIME PRN Insomn ia 03/13/25 03/13/25 Previous Rx's ?Medication ?Instructions ?Recorded sertraline 100 mg tablet 100 mg PO DAILY #90 tabs lorazepam 0.5 mg tablet 0.5 mg PO DAILY PRN anxiety 7 days 12/13/24 #7 tabs epinephrine 0.3 mg/0.3 mL 0.3 mg (0.3 mL) IM ONCE PRN 03/15/25 injection, auto-injector (EpiPen anaphylaxis 30 days # 2 ea 2-Vargas) prednisone 10 mg tablet 10 mg PO DIRECTED 9 days #18 03/15/25 tabs Allergies Allergy/AdvReac Type Severity Reaction Status Date / Time amoxicillin Allergy Unknown Unknown Verified 03/13/25 10:37 penicillin V Allergy Unknown lack of Verified 03/13/25 10:37 effect Review of Systems 2 Review of Systems: Constitutional : No Fever, No Chills ENT/Mouth : No sore throat, No Rhinorrhea Eyes: No Eye Pain, No Swelling, No Redness Cardiovascular : No Chest Pain, No SOB Respiratory : No Cough, No Sputum Gastrointestinal : No Nausea, No Vomiting, No Diarrhea, No abdominal Pain Genitourinary : No Dysuria, No Hematuria Musculoskeletal : No joint pain, No Myalgias, No Joint Swelling Skin : No Skin Lesions, + skin rash Neuro : No Weakness, No Numbness, No Headache All other systems reviewed and are negative Yes all other systems are reviewed and are negative Constitutional: Constitutional: Reports as per [facility] Past Medical History Medical History Depression with anxiety Surgical History No pertinent past surgical history Social History Social History Household Members: Family Housing: House Alcohol intake: current Alcohol intake frequency: a few times a month Alcohol type: hard liquor and other Patient Tobacco Use Status: Never used Tobacco Smoked in Last 30 Days: No e-Cigarette/Vaping Use: Never Used Second Hand Smoke Exposure: No Use of substances other than those prescribed or required for medical reasons: No Substance Use Type: Marijuana Advance Directives: No Advance Directives Information Provided: Yes Do you have a plan to hurt others: No Plan Nutrition Risks: No Nutritional Risk Patient : No service: No Current occupational status: employed Current occupation: [employer] in [place] Current occupational exposures/hazards: No Sexual orientation: Straight/Heterosexual Gender identity: Female Cognitive needs: No Hearing needs: No Vision needs: No Physical Exam ED Vital Signs: Vital Signs - 24 hr 03/13/25 10:34 03/13/25 10:46 03/13/25 11:16 Temperature 98.5 F Pulse Rate 97 90 91 Respiratory Rate 16 25 H 19 Blood Pressure 125/85 106/65 105/66 Pulse Oximetry 98 98 99 Oxygen Delivery Method Room Air Room Air Room Air 03/13/25 11:31 03/13/25 11:35 03/13/25 12:01 Temperature Pulse Rate 86 78 97 Respiratory Rate 20 23 H Blood Pressure 106/72 106/72 107/57 L Pulse Oximetry 99 99 Oxygen Delivery Method Room Air Room Air 03/13/25 12:16 03/13/25 14:19 03/13/25 14:25 Temperature Pulse Rate 96 71 Respiratory Rate 20 20 17 Blood Pressure 108/62 110/68 Pulse Oximetry 100 99 Oxygen Delivery Method Room Air Room Air 03/13/25 14:46 03/13/25 15:01 03/13/25 15:16 Temperature Pulse Rate 87 79 75 Respiratory Rate 12 19 19 Blood Pressure 121/79 113/74 109/68 Pulse Oximetry 100 97 99 Oxygen Delivery Method Room Air Room Air Room Air BMI result Body Mass Index 21.8 Const General: cooperative, comfortable and no acute distress Orientation/consciousness: patient oriented x3 Limitations: no limitations HENMT Other: Oropharynx is widely patent, no oropharyngeal edema, no stridor, no trismus or drooling. Head: Yes normal to inspection, Yes normocephalic and Yes atraumatic Ears: hearing grossly normal bilaterally General nose exam: Normal external nose present Face and sinus: Yes normal facial exam Mouth: Normal oral and palatal mucosa present, oropharynx normal and moist mucous membranes Throat: Yes posterior oropharynx normal Eyes General: appearance normal, both eyes and all related structures Eyelids: Yes eyelids normal Conjunctivae: conjunctivae normal Sclerae: sclerae normal Pupils: Equal, round and reactive pupils present EOM: EOMs intact bilaterally Neck Neck: Yes normal visual inspection, Yes full ROM and Yes no lymphadenopathy Lymphatic: no lymphadenopathy noted Chest Chest palpation & inspection: normal inspection of the chest Resp Effort & Inspection: normal respiratory effort and able to speak in complete sentences Auscultation: clear to auscultation bilaterally, no crackles, no rales, no rhonchi and no wheezes Cardio Rate: regular rate Rhythm: regular rhythm Heart sounds: S1 normal heart sound present and S2 normal heart sound present GI Inspection: Yes normal to inspection Skin Other: Diffuse hives noted throughout face, upper arms, trunk, itchy, blanchable. General skin exam: no rashes or lesions noted Trauma: no lacerations or abrasions Wounds: no wounds Neuro General: patient oriented x3 and moves all extremities Cranial nerves: Yes Equal, round and reactive pupils present Extrem Other: Posterior leg with old multiple puncture wounds, no surrounding erythema, warmth, or drainage. General: Yes normal to inspection Right upper extremity: normal to inspection Left upper extremity: normal to inspection Right lower extremity: normal to inspection Left lower extremity: normal to inspection Medications Administered Discontinued Medications Generic Name Dose Route Start Last Admin Trade Name Freq PRN Reason Stop Dose Admin Diphenhydramine HCl 50 mg 03/13/25 10:45 03/13/25 10:52 Diphenhydramine Hcl 50 Mg/Ml Vial IVPUSH 03/13/25 10:46 50 mg ONCE ONE Administration Diphenhydramine HCl 25 mg 03/13/25 18:53 03/13/25 19:36 Diphenhydramine Hcl 25 Mg Capsule PO 25 mg Q6H PRN Administration Itching Diphenhydramine HCl 25 mg 03/13/25 20:34 03/13/25 20:48 Diphenhydramine Hcl 50 Mg/Ml Vial IVPUSH 03/13/25 20:35 25 mg ONCE ONE Administration Epinephrine 0.3 mg 03/13/25 11:26 03/13/25 11:35 Epinephrine 1 Mg/Ml Vial IM 03/13/25 11:27 0.3 mg STAT STA Administration Famotidine 20 mg 03/13/25 10:45 03/13/25 10:52 Famotidine/Pf 20 Mg/2 Ml Vial IVPUSH 03/13/25 10:46 20 mg ONCE ONE Administration Famotidine 20 mg 03/13/25 20:35 03/13/25 20:48 Famotidine/Pf 20 Mg/2 Ml Vial IVPUSH 20 mg BID REDD Administration Sodium Chloride 1,000 mls @ 999 mls/hr 03/13/25 11:22 03/13/25 13:00 Ns IV 03/13/25 12:22 Infused .Q1H1M ONE Infusion Sodium Chloride 1,000 mls @ 999 mls/hr 03/13/25 12:32 03/13/25 15:20 Ns IV 03/13/25 13:32 Infused .Q1H1M ONE Infusion Acetaminophen 1,000 mg in 100 mls @ 400 mls/hr 03/13/25 14:58 03/13/25 15:38 Ofirmev IV 03/13/25 15:12 Infused ONCE ONE Infusion Iohexol 100 ml 03/13/25 14:18 03/13/25 14:18 Iohexol 350 Mg/Ml 100 Ml Infus..Btl IV 03/13/25 14:19 85 ml ONCE ONE Administration Methylprednisolone Sodium Succinate 60 mg 03/13/25 10:45 03/13/25 10:52 Methylprednisolone Sod Succ 125 Mg/2 Ml Vial IVPUSH 03/13/25 10:46 60 mg ONCE ONE Administration Methylprednisolone Sodium Succinate 60 mg 03/13/25 13:25 03/13/25 14:19 Methylprednisolone Sod Succ 125 Mg/2 Ml Vial IVPUSH 03/13/25 13:26 60 mg ONCE ONE Administration Methylprednisolone Sodium Succinate 125 mg 03/13/25 20:34 03/13/25 20:48 Methylprednisolone Sod Succ 125 Mg/2 Ml Vial IVPUSH 03/13/25 20:35 125 mg ONCE STA Administration Morphine Sulfate 4 mg 03/13/25 13:18 03/13/25 14:19 Morphine Sulfate 4 Mg/Ml Cartridge IVPUSH 03/13/25 13:19 4 mg ONCE ONE Administration Protocol Prednisone 60 mg 03/13/25 19:00 03/13/25 19:18 Prednisone 20 Mg Tablet PO 60 mg DAILY REDD Administration Tramadol HCl 25 mg 03/13/25 18:53 03/13/25 19:36 Tramadol Hcl 50 Mg Tablet PO 25 mg Q8H PRN Administration Pain, Moderate(Pain Scale 4-6) Medical Decision Making Medical Decision Making MDM Narrative: This is a 24-year-old female who presents emergency department with complaints of allergic reaction which started 24 hours ago. On arrival, vital signs within normal limits, she is speaking full sentences under no acute distress. Diffuse hives noted throughout face, upper arms, and entire trunk. She took Effexor for the very 1st time yesterday and noticed about an hour later she developed the rash. She has not had any additional dosages. Reporting itchiness. Patient reporting some tingling in her lips, no difficulty swallowing or breathing. Will medicate with is Solu-Medrol, Pepcid, and Benadryl. We will continue to closely monitor pending overall symptomatic improvement. Her lungs are clear to auscultation bilaterally, no wheezing, oropharynx is widely patent, no oropharyngeal edema, no stridor. 11:50 AM 03/13/2025 (Carolin Mijares PA-C): Patient re-evaluated, she states that she is feeling jittery and anxious, and feels as though the itching is worsening despite receiving Solu-Medrol, Benadryl, and Pepcid. She has no difficulty breathing or swallowing. No swelling. Discussed findings with my attending, will administer epinephrine. Afterwards, my attending physician evaluated patient. We will continue to closely monitor. 12:33 PM 03/13/2025 (Carolin Mijares PA-C): Rash still persisting, did already receive 1 L of normal saline, will order 2 L to help flush system with medications. We will also ordered basics to ensure no electrolyte derangement. Lungs remain to be cleared to auscultation, no oropharyngeal edema noted. No stridor. Patient states that the rash has not improved however I do appreciate slight overall improvement, rash does not appear to be as red or papular upon initial assessment. 1:18 PM 03/13/2025 (Carolin Mijares PA-C): Patient reassess, she is complaining of very severe pain in her upper right arm. Patient's pain seems to be out of proportion therefore I consulted with my attending physician, who assess patient. We are still awaiting labs to be done however, added on ESR CRP, CPK. Will also obtain CT with IV contrast of the right upper extremity to rule out necrotizing fasciitis. We will also medicate with morphine 4 mg IV push. Again, patient still has this rash noted throughout her upper extremities, trunk, and face. It appears that it is still present despite medicated efforts. We will continue to closely monitor. 1:40 PM 03/13/2025 (Carolin Mijares PA-C): Upon review of status of rabies series, it appears that she has record of this visit, she was placed on clindamycin AND bactrim DS, not sudafed. We are still awaiting labs. 3:03 PM 03/13/2025 (Carolin Mijares PA-C): Patient re-evaluated, her pain has improved after receiving morphine in her right arm. She still has some shooting like pain, this appears to be more neuropathic. CT still pending. Rash does appear to be less red, however still has extensive rash noted on her bilateral upper extremities, and trunk. Will medicate with Tylenol IV. CBC revealing patient is leukopenic at 2.6. Platelets low at 132. 4:01 PM 03/13/2025 (Carolin Mijares PA-C): CT arm revealing pockets of air, this is only pockets of air localized where she had the epinephrine placed. There is no other areas of concern on CT. This was reviewed with my attending physician. This is not necrotizing fasciitis. Her ESR within normal limits. CRP elevated. This is not necrotizing fasciitis. Infection is not suspected. This appears to be purely allergic. Vital signs within normal limits. Lactic within normal limits. 5:00 PM 03/13/2025 (Carolin Mijares PA-C): Patient's symptoms not improving admitted to the medical service for further management. Differential Diagnosis Differential Diagnoses: The differential diagnosis associated with the presentation includes Allergic reaction, contact dermatitis, adverse medication reaction, anaphylaxis Admission/Observation Consideration of admission/observation: Escalation of care including admission/observation considered Lab Data [facility] Lab Attestation statement: I reviewed the patient's lab results. See MDM and course 03/13/25 14:29 03/13/25 14:29 Labs: Lab Results 03/13/25 03/13/25 03/13/25 Range/Units 13:28 14:29 15:19 WBC 2.6 L (4.8-10.8) X10*3/uL RBC 4.05 L (4.20-5.50) X10*6/uL Hgb 11.9 L (12.0-16.0) g/dl Hct 34.3 L (37.0-47.0) % MCV 84.7 (80.0-98.0) fL MCH 29.4 (27.0-33.0) pg MCHC 34.7 (31.0-35.0) g/dl RDW 13.2 (11.0-16.0) % Plt Count 132 L D (160-400) X10*3/uL MPV 9.5 (9.4-12.3) fL Immature Gran % (Auto) 0.4 (0.0-0.4) % Neut % (Auto) 88.3 H (45-73) % Lymph % (Auto) 8.6 L (20-40) % [place] % (Auto) 2.3 (2-11) % Eos % (Auto) 0.4 (0-4) % Baso % (Auto) 0.0 (0-2) % Lymph # (Auto) 0.2 L (1.2-4.9) X10*3/uL [place] # (Auto) 0.1 (0.1-1.2) X10*3/uL Eos # (Auto) 0.0 (0.0-0.4) X10*3/uL Baso # (Auto) 0.0 (0.0-0.2) X10*3/uL Abs Immat Gran (auto) 0.01 (0.00-0.03) X10*3/uL Absolute Neuts (auto) 2.3 (2.0-8.3) x10*3/uL Absolute Nucleated RBC 0.000 (0.0-0.012) X10*3/uL Nucleated RBC % (auto) 0.0 (0.0-0.2) /100WBC ESR 8 (0-20) MM/HR PT 12.7 H (10.9-12.4) SEC INR 1.1 (0.9-1.1) Sodium 136 (135-145) mmol/L Potassium 3.9 (3.3-5.1) mmol/L Chloride 108 (96-108) mmol/L Carbon Dioxide 19 L (22-29) mmol/L Anion Gap 13 (12-20) BUN 9 (9-16) mg/dL Creatinine 0.78 (0.5-1.4) mg/dL Estim Creat Clear Calc 103.2 Estimated GFR > 60 Random Glucose 98 (60-115) mg/dL Lactic Acid 1.1 (0.5-2.0) mmol/L Calcium 8.0 L D (8.4-10.2) mg/dL Total Bilirubin 0.2 (0.0-1.0) mg/dL AST 30 (5-31) U/L ALT 14 (0-31) U/L Alkaline Phosphatase 50 (39-117) U/L Total Creatine Kinase 132 (26-140) U/L C-Reactive Protein 0.87 H (< or = 0.50) mg/dL Total Protein 6.3 L (6.5-8.0) g/dL Albumin 3.9 (3.5-5.0) g/dL Urine Color Yellow Urine Appearance Clear Urine pH 6.0 (5.0-9.0) Ur Specific [place] 1.020 (1.005-1.025) Urine Protein Negative (Neg-Trace) mg/dL Urine Glucose (UA) Negative (Negative) mg/dL Urine Ketones 40 (Negative) mg/dL Urine Blood Negative (Negative) Urine Nitrite Negative (Negative) Ur Leukocyte Esterase Negative (Negative) Urine RBC 0-2 (0-2) /HPF Urine WBC 0-5 (0-5) /HPF Ur Squamous Epith Cells 0-2 (0-2) /HPF Urine Bacteria Trace (None Seen) Hyaline Casts 0-2 (0-2) /LPF Respiratory Panel [place]y Adenovirus (Rapid PCR) (Not Detect.) B.pert (TEM-PCR) (Not Detect.) B.parapertussis DNA PCR (Not Detect.) C. pneumoniae DNA (PCR) (Not Detect.) Coronavirus OC43 (PCR) (Not Detect.) Coronavirus HKU1 (PCR) (Not Detect.) Coronavirus 229E (PCR) (Not Detect.) COVID-19 (SHARLA) (Negative) COVID-19 Clin Com Coronavirus NL63 (PCR) (Not Detect.) Human Metapneumovir PCR (Not Detect.) Influenza Type A (AIME) (Negative) Influenza A (RT-PCR) (Not Detect.) Influenza A (H1) PCR (Not Detect.) Influ A (H1/09) PCR (Not Detect.) Influenza A (H3) PCR (Not Detect.) Influenza Type B (AIME) (Negative) Influenza B (RT-PCR) (Not Detect.) Influenza A & B Note M. pneumoniae (PCR) (Not Detect.) Parainfluenza 1 (PCR) (Not Detect.) Parainfluenza 2 (PCR) (Not Detect.) Parainfluenza 3 (PCR) (Not Detect.) Parainfluenza 4 (PCR) (Not Detect.) RSV (PCR) (Not Detect.) Entero/Rhino (PCR) (Not Detect.) SARS-CoV-2 RNA (RT-PCR) (Not Detect.) S. pyogenes GrpA AIME (Negative) 03/13/25 03/13/25 03/13/25 Range/Units 17:13 17:14 17:16 WBC (4.8-10.8) X10*3/uL RBC (4.20-5.50) X10*6/uL Hgb (12.0-16.0) g/dl Hct (37.0-47.0) % MCV (80.0-98.0) fL MCH (27.0-33.0) pg MCHC (31.0-35.0) g/dl RDW (11.0-16.0) % Plt Count (160-400) X10*3/uL MPV (9.4-12.3) fL Immature Gran % (Auto) (0.0-0.4) % Neut % (Auto) (45-73) % Lymph % (Auto) (20-40) % [place] % (Auto) (2-11) % Eos % (Auto) (0-4) % Baso % (Auto) (0-2) % Lymph # (Auto) (1.2-4.9) X10*3/uL [place] # (Auto) (0.1-1.2) X10*3/uL Eos # (Auto) (0.0-0.4) X10*3/uL Baso # (Auto) (0.0-0.2) X10*3/uL Abs Immat Gran (auto) (0.00-0.03) X10*3/uL Absolute Neuts (auto) (2.0-8.3) x10*3/uL Absolute Nucleated RBC (0.0-0.012) X10*3/uL Nucleated RBC % (auto) (0.0-0.2) /100WBC ESR (0-20) MM/HR PT (10.9-12.4) SEC INR (0.9-1.1) Sodium (135-145) mmol/L Potassium (3.3-5.1) mmol/L Chloride (96-108) mmol/L Carbon Dioxide (22-29) mmol/L Anion Gap (12-20) BUN (9-16) mg/dL Creatinine (0.5-1.4) mg/dL Estim Creat Clear Calc Estimated GFR Random Glucose (60-115) mg/dL Lactic Acid (0.5-2.0) mmol/L Calcium (8.4-10.2) mg/dL Total Bilirubin (0.0-1.0) mg/dL AST (5-31) U/L ALT (0-31) U/L Alkaline Phosphatase (39-117) U/L Total Creatine Kinase (26-140) U/L C-Reactive Protein (< or = 0.50) mg/dL Total Protein (6.5-8.0) g/dL Albumin (3.5-5.0) g/dL Urine Color Urine Appearance Urine pH (5.0-9.0) Ur Specific [place] (1.005-1.025) Urine Protein (Neg-Trace) mg/dL Urine Glucose (UA) (Negative) mg/dL Urine Ketones (Negative) mg/dL Urine Blood (Negative) Urine Nitrite (Negative) Ur Leukocyte Esterase (Negative) Urine RBC (0-2) /HPF Urine WBC (0-5) /HPF Ur Squamous Epith Cells (0-2) /HPF Urine Bacteria (None Seen) Hyaline Casts (0-2) /LPF Respiratory Panel [place] See Note Adenovirus (Rapid PCR) Not Detected (Not Detect.) B.pert (TEM-PCR) Not Detected (Not Detect.) B.parapertussis DNA PCR Not Detected (Not Detect.) C. pneumoniae DNA (PCR) Not Detected (Not Detect.) Coronavirus OC43 (PCR) Not Detected (Not Detect.) Coronavirus HKU1 (PCR) Not Detected (Not Detect.) Coronavirus 229E (PCR) Not Detected (Not Detect.) COVID-19 (SHARLA) Negative (Negative) COVID-19 Clin Com See Note Coronavirus NL63 (PCR) Not Detected (Not Detect.) Human Metapneumovir PCR Not Detected (Not Detect.) Influenza Type A (AIME) Negative (Negative) Influenza A (RT-PCR) Not Detected (Not Detect.) Influenza A (H1) PCR Not Detected (Not Detect.) Influ A (H1/09) PCR Not Detected (Not Detect.) Influenza A (H3) PCR Not Detected (Not Detect.) Influenza Type B (AIME) Negative (Negative) Influenza B (RT-PCR) Not Detected (Not Detect.) Influenza A & B Note See Note M. pneumoniae (PCR) Not Detected (Not Detect.) Parainfluenza 1 (PCR) Not Detected (Not Detect.) Parainfluenza 2 (PCR) Not Detected (Not Detect.) Parainfluenza 3 (PCR) Not Detected (Not Detect.) Parainfluenza 4 (PCR) Not Detected (Not Detect.) RSV (PCR) Not Detected (Not Detect.) Entero/Rhino (PCR) Not Detected (Not Detect.) SARS-CoV-2 RNA (RT-PCR) Not Detected (Not Detect.) S. pyogenes GrpA AIME Negative (Negative) Radiology Impression Discussion of test interpretation with radiology: I have reviewed the radiologist's reading. Radiologist Impression: Findings: CT evaluation of the right upper extremity from the level of the shoulder to the level of the metacarpals of the hand. There are multiple tiny pockets of gas within the soft tissues of the deltoid muscle. No obvious associated edema. No evidence of abscess. Remaining soft tissues are unremarkable. There is no shoulder or elbow effusion. No fracture, dislocation or evidence of osteomyelitis. No significant degenerative changes. Unremarkable visualized right lung. Impression: 1. There are multiple tiny pockets of gas within the soft tissues of the right deltoid of uncertain etiology. Necrotizing infection not excluded. This document has been electronically signed by: Mague Manzanares MD on 03/13/2025 16:17:07 Dictated By: Mague Manzanares MD Findings: CT evaluation of the right upper extremity from the level of the shoulder to the level of the metacarpals of the hand. There are multiple tiny pockets of gas within the soft tissues of the deltoid muscle. No obvious associated edema. No evidence of abscess. Remaining soft tissues are unremarkable. There is no shoulder or elbow effusion. No fracture, dislocation or evidence of osteomyelitis. No significant degenerative changes. Unremarkable visualized right lung. Impression: 1. There are multiple tiny pockets of gas within the soft tissues of the right deltoid of uncertain etiology. Necrotizing infection not excluded. This document has been electronically signed by: Mague Manzanares MD on 03/13/2025 15:39:56 Dictated By: Mague Manzanares MD Critical Care Time Critical Care Time Critical Care Time: Yes Total Critical Care Time: 68 Attestation: I have personally provided critical care time exclusive of time spent on separately billable procedures. Time includes review of lab data, radiology results, discussion with consultants, and monitoring for potential decompensation. Intervention performed as documented. Discharge Plan Discharge Clinical Impression: Urticaria, Anaphylaxis, Allergic reaction, Adverse reaction to drug, Angioedema Patient Disposition: Left Against Medical Advice Interventions: ED Discharge Assessment Last Done: 03/13/25 23:09 Discharge Date/Time: 03/13/25 23:09
--- NOTE | 2025-03-13 10:49 | PC.NURSE ---
24 F presents to ED with rash all over body, tongue swelling, tingling in lips, and h/a behind eyes since noon yesterday, likely d/t newly prescribed Desvenlafaxine. Pt denies any CP or SOB. A+Ox4, anxious, cooperative. Lung sounds clear bilat. pt has hives all over body and is itching them. Ambulates independently.
[2025-03-13 13:42] LABS: INTERNATIONAL NORM RATIO 1.1 (0.9-1.1); Prothrombin Time 12.7 SEC (10.9-12.4)
--- NOTE | 2025-03-13 13:58 | PC.NURSE ---
Patient away at CT
--- NOTE | 2025-03-13 14:09 | PC.NURSE ---
Delayed note by this RN: Around 13:00 today, patient noted to be crying out in excrutiating pain. Reports right arm pain, and immobility near epinephrine injection site. Pt received IM Epi by previous RN Gavin Nava. Systemic rash noted. Pt would not allow this RN or providers to touch the area without excrutiating discomfort. Hiram some labs, but during the lab draw, pt began complaining of severe pain again, and access was lost. Unable to draw all labs, but the labs that were collected were sent for analysis. Results pending. CT ordered. Per pt & family, recently housed a stray cat from [employer] named Kymberly , that bit her 1 week ago. This cat was returned to [facility] and was previously quarantined to rule out rabies/cat diseases. Care ongoing by this RN.
[2025-03-13] MEDS: iohexoL 350 MG/ML 100 ML INFUS..BTL IV (14:18)
[2025-03-13 14:36] LABS: MANUAL DIFF FLAG NO
[2025-03-13 14:37] LABS: Hematocrit 34.3 % (37.0-47.0); Hemoglobin 11.9 g/dl (12.0-16.0); Imm Gran Abs Auto 0.01 X10*3/uL (0.00-0.03); Imm Gran Pct Auto 0.4 % (0.0-0.4); Lymphocytes Absolute Auto 0.2 X10*3/uL (1.2-4.9); Mean Corpuscular HGB Conc 34.7 g/dl (31.0-35.0); Mean Corpuscular Hemoglobin 29.4 pg (27.0-33.0); Mean Corpuscular Volume 84.7 fL (80.0-98.0); NRBC Abs Auto 0.000 X10*3/uL (0.0-0.012); NRBC Pct Auto 0.0 /100WBC (0.0-0.2); Red Blood Count 4.05 X10*6/uL (4.20-5.50)
[2025-03-13 14:54] LABS: White Blood Count 2.6 X10*3/uL (4.8-10.8)
[2025-03-13 15:09] LABS: Platelet Count 132 X10*3/uL (160-400)
[2025-03-13 15:14] LABS: Alanine Aminotransferase 14 U/L (0-31); Albumin Level 3.9 g/dL (3.5-5.0); Alkaline Phosphatase 50 U/L (39-117); Anion Gap 13 (12-20); Aspartate Amino Transferase 30 U/L (5-31); Blood Urea Nitrogen 9 mg/dL (9-16); Calcium 8.0 mg/dL (8.4-10.2); Carbon Dioxide 19 mmol/L (22-29); Chloride 108 mmol/L (96-108); Creatinine Clr Calc Pharmacy 103.2; Estimated Glomerular Filt Rate > 60; Potassium 3.9 mmol/L (3.3-5.1); Sodium 136 mmol/L (135-145); Total Protein 6.3 g/dL (6.5-8.0)
[2025-03-13 15:26] LABS: Appearance Urine Clear; Glucose Urine UA Negative (Negative); PH 6.0 (5.0-9.0); Specific Gravity - Urine 1.020 (1.005-1.025)
[2025-03-13 17:43] LABS: COVID-19 Test Negative (Negative); IDNOW Serial# 55D5AD1C
[2025-03-13 17:44] LABS: IDNOW Serial# 08D9AD1C; Strep A Nucleic Acid Negative (Negative)
[2025-03-13 17:45] LABS: IDNOW Serial# 58CA691E
[2025-03-13 17:46] LABS: Influenza B2 Negative (Negative)
--- NOTE | 2025-03-13 18:09 | P.HPHOSP_ITS ---
History of Present Illness Date of Service: 03/13/25 Attending physician on admission: Mckenna Block Chief Complaint: Urticaria, angioedema, tachycardia Patient is a 24-year-old female with a background history of GERD, anemia, recent cat bite on clindamycin and TMP-SMX (03/05), MDD/radames with panic attacks recently started on desvenlafaxine (Pristiq) 2-4 days ago, presents with diffuse urticarial rash & lip/tongue swelling and tingling. PRESENTATION Patient reports suffering with a cat bite about 10 days prior to presentation. She presented to walk-in clinic, where she was prescribed clindamycin and Bactrim for the cat bite empirically. She does not have an allergy to penicillin or amoxicillin, however reports lack of effect of antibiotics to treat prior infections. She was also recently started on camden-venlafaxine a few days ago for MDD/RADAMES with panic attacks. She is being transitioned from SSRI to SNRI; she took her 1st tablet yesterday. Today, the patient reports experiencing a diffuse red itchy rash along her body, which quickly spread to her arms legs and abdomen. She also reports experiencing swelling of the lips and tongue with a tingling sensation. This made her nervous, and reports experiencing fast heartbeats, and shortness of breath. She denies abdominal pain, vomiting or diarrhea. She presented to the emergency room for further evaluation ED MANAGEMENT Noted diffuse hives around the face upper extremities lower extremities and trunk. Patient received Solu-Medrol, Pepcid and Benadryl. Noting no evidence of hypoxia, wheezing, widely open oropharynx, without oropharyngeal edema and no stridor. She was re-evaluated noting persistent itching despite medications. Epinephrine was administered for anaphylaxis, along with 1 L normal saline. Experienced severe pain around the right medial deltoid post epinephrine intramuscular injection. CT right upper extremity performed - negative for concerning findings other than SQ gas. EVALUATION Patient is rashes recurring in the upper extremities, itchy. Patient also reports some tingling around her lips. Review of Systems 2 Review of Systems: Yes all other systems are reviewed and are negative [facility] Medical History Depression with anxiety Surgical History No pertinent past surgical history Social History Household Members: Family Housing: House Alcohol intake: current Alcohol intake frequency: a few times a month Alcohol type: hard liquor and other Patient Tobacco Use Status: Never used Tobacco Smoked in Last 30 Days: No e-Cigarette/Vaping Use: Never Used Second Hand Smoke Exposure: No Use of substances other than those prescribed or required for medical reasons: No Substance Use Type: Marijuana Advance Directives: No Advance Directives Information Provided: Yes Do you have a plan to hurt others: No Plan Patient : No service: No Current occupational status: employed Current occupation: [employer] in [place] Current occupational exposures/hazards: No Sexual orientation: Straight/Heterosexual Gender identity: Female Cognitive needs: No Hearing needs: No Vision needs: No Meds Allergies Allergy/AdvReac Type Severity Reaction Status Date / Time amoxicillin Allergy Unknown Unknown Verified 03/13/25 10:37 penicillin V Allergy Unknown lack of Verified 03/13/25 10:37 effect Home Medications ?Medication ?Instructions ?Recorded ?Confirmed ?Last Taken ?Type loratadine 10 mg tablet 10 mg PO DAILY PRN Allergies 03/13/25 03/13/25 03/12/25 History trazodone 100 mg tablet 100 mg PO BEDTIME PRN Insomn ia 03/13/25 03/13/25 03/12/25 History Physical Exam 2 Vital Signs and Narrative: Vital Signs: Last Vital Signs Temp 98.5 F 03/13/25 10:34 Pulse 75 03/13/25 15:16 Resp 19 03/13/25 15:16 BP 109/68 03/13/25 15:16 Pulse Ox 99 03/13/25 15:16 O2 Del Method Room Air 03/13/25 15:16 BMI result Body Mass Index 21.8 General: A&O x3, oriented to time place person and situation, comfortable, no pain Cardiac: S1, S2 auscultated with no S3/4, no MRG. Well perfused. Respiratory: Normal breath sounds auscultated throughout all lung zones, without wheezing, rales. Normal rate. GI/ : No abdominal pain on palpation, no masses or distentions. MSK: Normal ambulation without pain at bony prominences or musculature Neurological: Normal neurological examination on overview, without obvious CN II-XII abnormalities. Dermatological: Urticarial rash blunting on palpation located at the upper extremities bilaterally especially on the forearms most prominently. No rash on the lower extremities or trunk a or face. Cat bite noted on the medial aspect of the right thigh, no fluctuance, oozing, bleeding, cellulitis. Well healing. Results Labs 03/13/25 14:29 03/13/25 14:29 Labs: Laboratory Results - last 24 hr 03/13/25 03/13/25 03/13/25 13:28 14:29 15:19 MCV 84.7 MCH 29.4 MCHC 34.7 RDW 13.2 Plt Count 132 L D MPV 9.5 Immature Gran % (Auto) 0.4 Neut % (Auto) 88.3 H Lymph % (Auto) 8.6 L [place] % (Auto) 2.3 Eos % (Auto) 0.4 Baso % (Auto) 0.0 Lymph # (Auto) 0.2 L [place] # (Auto) 0.1 Eos # (Auto) 0.0 Baso # (Auto) 0.0 Abs Immat Gran (auto) 0.01 Absolute Neuts (auto) 2.3 Absolute Nucleated RBC 0.000 Nucleated RBC % (auto) 0.0 ESR 8 PT 12.7 H INR 1.1 Anion Gap 13 Estim Creat Clear Calc 103.2 Estimated GFR > 60 Random Glucose 98 Lactic Acid 1.1 Calcium 8.0 L D Total Bilirubin 0.2 AST 30 ALT 14 Alkaline Phosphatase 50 Total Creatine Kinase 132 C-Reactive Protein 0.87 H Total Protein 6.3 L Albumin 3.9 Urine Color Yellow Urine Appearance Clear Urine pH 6.0 Ur Specific [place] 1.020 Urine Protein Negative Urine Glucose (UA) Negative Urine Ketones 40 Urine Blood Negative Urine Nitrite Negative Ur Leukocyte Esterase Negative Urine RBC 0-2 Urine WBC 0-5 Ur Squamous Epith Cells 0-2 Urine Bacteria Trace Hyaline Casts 0-2 COVID-19 (SHARLA) COVID-19 Clin Com Influenza Type A (AIME) Influenza Type B (AIME) Influenza A & B Note S. pyogenes GrpA AIME 03/13/25 03/13/25 17:13 17:14 MCV MCH MCHC RDW Plt Count MPV Immature Gran % (Auto) Neut % (Auto) Lymph % (Auto) [place] % (Auto) Eos % (Auto) Baso % (Auto) Lymph # (Auto) [place] # (Auto) Eos # (Auto) Baso # (Auto) Abs Immat Gran (auto) Absolute Neuts (auto) Absolute Nucleated RBC Nucleated RBC % (auto) ESR PT INR Anion Gap Estim Creat Clear Calc Estimated GFR Random Glucose Lactic Acid Calcium Total Bilirubin AST ALT Alkaline Phosphatase Total Creatine Kinase C-Reactive Protein Total Protein Albumin Urine Color Urine Appearance Urine pH Ur Specific [place] Urine Protein Urine Glucose (UA) Urine Ketones Urine Blood Urine Nitrite Ur Leukocyte Esterase Urine RBC Urine WBC Ur Squamous Epith Cells Urine Bacteria Hyaline Casts COVID-19 (SHARLA) Negative COVID-19 Clin Com See Note Influenza Type A (AIME) Negative Influenza Type B (AIME) Negative Influenza A & B Note See Note S. pyogenes GrpA AIME Negative Assessment and Plan (1) Anaphylaxis: Qualifiers: Encounter type: initial encounter Qualified Code(s): T78.2XXA - Anaphylactic shock, unspecified, initial encounter Status: Acute (2) Cat bite of right thigh: Qualifiers: Encounter type: initial encounter Qualified Code(s): S71.151A - Open bite, right thigh, initial encounter; W55.01XA - Bitten by cat, initial encounter Status: Acute (3) Panic attack: Status: Acute (4) MDD (major depressive disorder), recurrent episode, moderate: Status: Acute (5) RADAMES (generalized anxiety disorder): Status: Acute (6) Pancytopenia: Status: Acute Plan Patient is a 24-year-old female with a background history of GERD, anemia, recent cat bite on clindamycin and TMP-SMX (03/05), MDD/radames with panic attacks recently started on desvenlafaxine (Pristiq) 2-4 days ago, presents with diffuse urticarial rash & lip/tongue swelling and tingling, admitted for anaphylaxis likely 2/2 desvenlafaxine, found to incidentally have anemia, leukopenia and thrombocytopenia. Anaphylaxis Likely Biphasic Anaphylaxis Likely 2/2 cam[place]-venlafaxine (ingested within 24 hours of reaction). Other possible, less likely etiologies could be a delayed allergic reaction to clindamycin. Tachycardia, tachypnea, angioedema & urticaria. Patient received Solu-Medrol, Benadryl, fluids, 1 EpiPen right shoulder. Anaphylactic reaction reoccurring, without evidence of shock physiology. Recurrence of symptoms post management in ED. PLAN - prednisone 60 mg OD p.o. - Benadryl 25 mg q.6 hourly p.r.n. - epinephrine as needed for recurrence of anaphylaxis - monitor on telemetry - monitor for multiphasic anaphylaxis; q.4 hourly vital checks - 1 L NaCl if recurrence of symptoms Cat bite Empiric antibiotics with clindamycin and Bactrim Patient has completed 7 days of management. No evidence of active infection at the cat bite. Discontinue antibiotics Right shoulder pain Occurring post injection of intramuscular epinephrine CT scan of right shoulder revealing subcutaneous gas - neuro checks right arm q.4 hourly - analgesia (AVOID NSAIDS IN SETTING OF ANAPHYLAXIS) Leukopenia Thrombocytopenia New issues since initiation of antibiotics. Suspected element of agranulocytosis/side effect from clindamycin. Monitor white cells and platelets as inpatient and repeat testing and outpatient within 1-2 weeks If persistent pancytopenia, would consider serum/urine immunofixation/electrophoresis. Iron-deficiency anemia Patient has chronic iron deficiency anemia in the outpatient setting. Iron supplementation every other day MDD/RADAMES Panic attacks Hold Pristiq QUALITY METRICS - VTE: Low risk none - CODE STATUS: Full code - DIET: Regular Quality Stroke Does the patient have a stroke diagnosis?: No VTE Prior VTE?: No VTE Risk Level:: Medical - low VTE Device Contraindication: Treatment Not Indicated VTE Drug Contraindication: Treatment Not Indicated
--- NOTE | 2025-03-13 18:12 | PHA.MEDREC ---
Pharmacy Consult ? Medication Reconciliation Pharmacy has completed the medication reconciliation. Spoke with pt at bedside to confirm home meds
--- NOTE | 2025-03-13 19:43 | PC.NURSE ---
Patient reports worsening itching and pain to right deltoid. Medicated with PRN orders. Worsening rash/hives to left bicep area with itching. Vitals stable. Call bernstein within reach. Able to make needs known. Care ongoing by this RN.
--- NOTE | 2025-03-13 23:00 | PC.NURSE ---
Pt experienced panic attack, threatening to remove her IVs and leave ED. Hyperventilating, demanding to be discharged due to anxiety about being in ED. MIKEL Nuñez at bedside speaking with the patient. Signed AMA paperwork.
--- NOTE | 2025-03-13 23:19 | P.DS_ITS ---
DS: Providers Provider Date of Service: 03/13/25 Date of admission: 03/13/25 18:53 Date of discharge: 03/13/25 Primary care physician: Garrett Willoughby PA-C Admitting clinician: Mckenna Block DS: Diagnosis Discharge Diagnosis (1) Anaphylaxis: Status: Acute (2) Cat bite of right thigh: Status: Acute (3) Panic attack: Status: Acute (4) MDD (major depressive disorder), recurrent episode, moderate: Status: Acute (5) RADAMES (generalized anxiety disorder): Status: Acute (6) Pancytopenia: Status: Acute DS: Summary Hospital Course Hospital Course: H&P on admission: Patient is a 24-year-old female with a background history of GERD, anemia, recent cat bite on clindamycin and TMP-SMX (03/05), MDD/radames with panic attacks recently started on desvenlafaxine (Pristiq) 2-4 days ago, presents with diffuse urticarial rash & lip/tongue swelling and tingling. PRESENTATION Patient reports suffering with a cat bite about 10 days prior to presentation. She presented to walk-in clinic, where she was prescribed clindamycin and Bactrim for the cat bite empirically. She does not have an allergy to penicillin or amoxicillin, however reports lack of effect of antibiotics to treat prior infections. She was also recently started on cam[place]-venlafaxine a few days ago for MDD/RADAMES with panic attacks. She is being transitioned from SSRI to SNRI; she took her 1st tablet yesterday. Today, the patient reports experiencing a diffuse red itchy rash along her body, which quickly spread to her arms legs and abdomen. She also reports experiencing swelling of the lips and tongue with a tingling sensation. This made her nervous, and reports experiencing fast heartbeats, and shortness of breath. She denies abdominal pain, vomiting or diarrhea. She presented to the emergency room for further evaluation ED MANAGEMENT Noted diffuse hives around the face upper extremities lower extremities and trunk. Patient received Solu-Medrol, Pepcid and Benadryl. Noting no evidence of hypoxia, wheezing, widely open oropharynx, without oropharyngeal edema and no stridor. She was re-evaluated noting persistent itching despite medications. Epinephrine was administered for anaphylaxis, along with 1 L normal saline. Experienced severe pain around the right medial deltoid post epinephrine intramuscular injection. CT right upper extremity performed - negative for concerning findings other than SQ gas. EVALUATION Patient is rashes recurring in the upper extremities, itchy. Patient also reports some tingling around her lips. hospital course: ED MANAGEMENT Noted diffuse hives around the face upper extremities lower extremities and trunk. Patient received Solu-Medrol, Pepcid and Benadryl. Noting no evidence of hypoxia, wheezing, widely open oropharynx, without oropharyngeal edema and no stridor. She was re-evaluated noting persistent itching despite medications. Epinephrine was administered for anaphylaxis, along with 1 L normal saline. Experienced severe pain around the right medial deltoid post epinephrine intramuscular injection. CT right upper extremity performed - negative for concerning findings other than SQ gas. the pt was monitored on telemetry without any events. she became suddenly agitated stating that she was hungry and did not want hospital food. She also reported that she was very anxious. She was offered Valium and other food however she declined. The patient states she feels better and feels that she could manage this at home with Benadryl and epinephrine if needed. She lives with others who will be able to monitor her. We discussed the risks of repeat a anaphylactic episode and the importance of monitoring her in the hospital setting, including respiratory distress leading to . The patient is aware the risks and chose to leave AMA. She reports that she will return back to the hospital if her symptoms return. epi pen was sent to her pharmacy and she will continue benadryl Q6H. she will hold desvenflaxine. Status at Discharge Functional status at discharge: independent ambulation Overall status at discharge: patient is progressing back to baseline Time Attestation Discharge Coordination Time (in mins): >30mins Quality: Safe Use of Opioids Does Pt have an Active Cancer Diagnosis on the Problem List?: No Quality: Stroke Does the patient have a stroke diagnosis?: No Physical Exam Exam: Exam: pt refused exam. did appear to have hives on bilateral upper extremities still, scratching at them. no respiraotry distress. agitated. Vital Signs: Vital Signs: Last Vital Signs Temp 98.2 F 03/13/25 23:09 Pulse 75 03/13/25 23:09 Resp 19 03/13/25 23:09 BP 109/68 03/13/25 23:09 Pulse Ox 99 03/13/25 23:09 O2 Del Method Room Air 03/13/25 23:09 BMI result Body Mass Index 21.8 DS: Data Data Completed and Pending Labs on day of discharge: Laboratory Results - last 24 hr 03/13/25 03/13/25 03/13/25 13:28 14:29 15:19 WBC 2.6 L RBC 4.05 L Hgb 11.9 L Hct 34.3 L MCV 84.7 MCH 29.4 MCHC 34.7 RDW 13.2 Plt Count 132 L D MPV 9.5 Immature Gran % (Auto) 0.4 Neut % (Auto) 88.3 H Lymph % (Auto) 8.6 L [place] % (Auto) 2.3 Eos % (Auto) 0.4 Baso % (Auto) 0.0 Lymph # (Auto) 0.2 L [place] # (Auto) 0.1 Eos # (Auto) 0.0 Baso # (Auto) 0.0 Abs Immat Gran (auto) 0.01 Absolute Neuts (auto) 2.3 Absolute Nucleated RBC 0.000 Nucleated RBC % (auto) 0.0 ESR 8 PT 12.7 H INR 1.1 Sodium 136 Potassium 3.9 Chloride 108 Carbon Dioxide 19 L Anion Gap 13 BUN 9 Creatinine 0.78 Estim Creat Clear Calc 103.2 Estimated GFR > 60 Random Glucose 98 Lactic Acid 1.1 Calcium 8.0 L D Total Bilirubin 0.2 AST 30 ALT 14 Alkaline Phosphatase 50 Total Creatine Kinase 132 C-Reactive Protein 0.87 H Total Protein 6.3 L Albumin 3.9 Urine Color Yellow Urine Appearance Clear Urine pH 6.0 Ur Specific [place] 1.020 Urine Protein Negative Urine Glucose (UA) Negative Urine Ketones 40 Urine Blood Negative Urine Nitrite Negative Ur Leukocyte Esterase Negative Urine RBC 0-2 Urine WBC 0-5 Ur Squamous Epith Cells 0-2 Urine Bacteria Trace Hyaline Casts 0-2 COVID-19 ([facility]ARLA) COVID-19 Clin Com Influenza Type A (AIME) Influenza Type B (AIME) Influenza A & B Note S. pyogenes GrpA AIME 03/13/25 03/13/25 17:13 17:14 WBC RBC Hgb Hct MCV MCH MCHC RDW Plt Count MPV Immature Gran % (Auto) Neut % (Auto) Lymph % (Auto) [place] % (Auto) Eos % (Auto) Baso % (Auto) Lymph # (Auto) [place] # (Auto) Eos # (Auto) Baso # (Auto) Abs Immat Gran (auto) Absolute Neuts (auto) Absolute Nucleated RBC Nucleated RBC % (auto) ESR PT INR Sodium Potassium Chloride Carbon Dioxide Anion Gap BUN Creatinine Estim Creat Clear Calc Estimated GFR Random Glucose Lactic Acid Calcium Total Bilirubin AST ALT Alkaline Phosphatase Total Creatine Kinase C-Reactive Protein Total Protein Albumin Urine Color Urine Appearance Urine pH Ur Specific [place] Urine Protein Urine Glucose (UA) Urine Ketones Urine Blood Urine Nitrite Ur Leukocyte Esterase Urine RBC Urine WBC Ur Squamous Epith Cells Urine Bacteria Hyaline Casts COVID-19 (SHARLA) Negative COVID-19 Clin Com See Note Influenza Type A (AIME) Negative Influenza Type B (AIME) Negative Influenza A & B Note See Note S. pyogenes GrpA IAME Negative Discharge Plan Discharge Anticipated Discharge Date/Time: 03/13/25 23:15 Patient Disposition: Left Against Medical Advice Discharge Diagnosis: anaphylaxis, allergic reaction from drug, likely desvenlafaxine Referrals: Garrett Willoughby PA-C [Primary Care Provider, Internal Medicine] - 1 Week Discharge Medications: New epinephrine [EpiPen 2-Vargas] 0.3 mg/0.3 mL auto-injector 0.3 mg IM Q10M PRN (Reason: anaphylaxis) Qty: 2 0RF Rx Instructions: for 2 doses Continued sertraline 100 mg tablet 100 mg PO DAILY Qty: 90 2RF lorazepam 0.5 mg tablet 0.5 mg PO DAILY PRN (Reason: anxiety) 7 Days Qty: 7 0RF trazodone 100 mg tablet 100 mg PO BEDTIME PRN (Reason: Insomnia) loratadine 10 mg tablet 10 mg PO DAILY PRN (Reason: Allergies) Discharge Orders: Discharge Order (Routine); Ordered 03/13/25 Ordered By: Dorothea Nuñez Diet: Regular diet Activity on Discharge: No Restrictions Stand Alone Forms: Against Medical Advice Print Language: Frisian Care Plan Goals: recover from allergic reaction Health Concerns: Anaphylaxis, angioedema, allergic reaction secondary to drug (likely desvenlafaxine), anxiety/panic disorder, cap by leukopenia, thrombocytopenia, iron-deficiency anemia pt left AMA, risks discussed. Plan of Treatment: Patient left AMA epi pen sent to pharmacy pt states she will continue with benadryl every 6 hours at home and return if sx worsen again Assessment: see above
[2025-03-14 08:30] LABS: Chlamydia pneumoniae PCR Not Detected (Not Detect.); Coronavirus 229E PCR Not Detected (Not Detect.); Coronavirus HKU1 PCR Not Detected (Not Detect.); Coronavirus NL63 PCR Not Detected (Not Detect.); Coronavirus OC43 PCR Not Detected (Not Detect.); RSV PCR Not Detected (Not Detect.); Rhino/Enterovirus PCR Not Detected (Not Detect.)
--- NOTE | 2025-03-14 09:06 | PM.DS ---
DS: Providers Provider Date of Service: 03/14/25 Date of admission: 03/13/25 18:53 Date of discharge: 03/14/25 Primary care physician: Garrett Willoughby PA-C DS: Diagnosis Discharge Diagnosis (1) Anaphylaxis: Status: Acute (2) Cat bite of right thigh: Status: Acute (3) Panic attack: Status: Acute (4) MDD (major depressive disorder), recurrent episode, moderate: Status: Acute (5) RADAMES (generalized anxiety disorder): Status: Acute (6) Pancytopenia: Status: Acute DS: Summary Hospital Course Hospital Course: H&P on admission: Patient is a 24-year-old female with a background history of GERD, anemia, recent cat bite on clindamycin and TMP-SMX (03/05), MDD/radames with panic attacks recently started on desvenlafaxine (Pristiq) 2-4 days ago, presents with diffuse urticarial rash & lip/tongue swelling and tingling. PRESENTATION Patient reports suffering with a cat bite about 10 days prior to presentation. She presented to walk-in clinic, where she was prescribed clindamycin and Bactrim for the cat bite empirically. She does not have an allergy to penicillin or amoxicillin, however reports lack of effect of antibiotics to treat prior infections. She was also recently started on camden-venlafaxine a few days ago for MDD/RADAMES with panic attacks. She is being transitioned from SSRI to SNRI; she took her 1st tablet yesterday. Today, the patient reports experiencing a diffuse red itchy rash along her body, which quickly spread to her arms legs and abdomen. She also reports experiencing swelling of the lips and tongue with a tingling sensation. This made her nervous, and reports experiencing fast heartbeats, and shortness of breath. She denies abdominal pain, vomiting or diarrhea. She presented to the emergency room for further evaluation ED MANAGEMENT Noted diffuse hives around the face upper extremities lower extremities and trunk. Patient received Solu-Medrol, Pepcid and Benadryl. Noting no evidence of hypoxia, wheezing, widely open oropharynx, without oropharyngeal edema and no stridor. She was re-evaluated noting persistent itching despite medications. Epinephrine was administered for anaphylaxis, along with 1 L normal saline. Experienced severe pain around the right medial deltoid post epinephrine intramuscular injection. CT right upper extremity performed - negative for concerning findings other than SQ gas. EVALUATION Patient is rashes recurring in the upper extremities, itchy. Patient also reports some tingling around her lips. hospital course: ED MANAGEMENT Noted diffuse hives around the face upper extremities lower extremities and trunk. Patient received Solu-Medrol, Pepcid and Benadryl. Noting no evidence of hypoxia, wheezing, widely open oropharynx, without oropharyngeal edema and no stridor. She was re-evaluated noting persistent itching despite medications. Epinephrine was administered for anaphylaxis, along with 1 L normal saline. Experienced severe pain around the right medial deltoid post epinephrine intramuscular injection. CT right upper extremity performed - negative for concerning findings other than SQ gas. the pt was monitored on telemetry without any events. she became suddenly agitated stating that she was hungry and did not want hospital food. She also reported that she was very anxious. She was offered Valium and other food however she declined. The patient states she feels better and feels that she could manage this at home with Benadryl and epinephrine if needed. She lives with others who will be able to monitor her. We discussed the risks of repeat a anaphylactic episode and the importance of monitoring her in the hospital setting, including respiratory distress leading to . The patient is aware the risks and chose to leave AMA. She reports that she will return back to the hospital if her symptoms return. epi pen was sent to her pharmacy and she will continue benadryl Q6H. she will hold desvenflaxine. Physical Exam Vital Signs: Vital Signs: Last Vital Signs Temp 98.2 F 03/13/25 23:09 Pulse 75 03/13/25 23:09 Resp 19 03/13/25 23:09 BP 109/68 03/13/25 23:09 Pulse Ox 99 03/13/25 23:09 O2 Del Method Room Air 03/13/25 23:09 BMI result Body Mass Index 21.8 DS: Data Data Completed and Pending Labs on day of discharge: Laboratory Results - last 24 hr 03/13/25 03/13/25 03/13/25 13:28 14:29 15:19 WBC 2.6 L RBC 4.05 L Hgb 11.9 L Hct 34.3 L MCV 84.7 MCH 29.4 MCHC 34.7 RDW 13.2 Plt Count 132 L D MPV 9.5 Immature Gran % (Auto) 0.4 Neut % (Auto) 88.3 H Lymph % (Auto) 8.6 L Cascade % (Auto) 2.3 Eos % (Auto) 0.4 Baso % (Auto) 0.0 Lymph # (Auto) 0.2 L Cascade # (Auto) 0.1 Eos # (Auto) 0.0 Baso # (Auto) 0.0 Abs Immat Gran (auto) 0.01 Absolute Neuts (auto) 2.3 Absolute Nucleated RBC 0.000 Nucleated RBC % (auto) 0.0 ESR 8 PT 12.7 H INR 1.1 Sodium 136 Potassium 3.9 Chloride 108 Carbon Dioxide 19 L Anion Gap 13 BUN 9 Creatinine 0.78 Estim Creat Clear Calc 103.2 Estimated GFR > 60 Random Glucose 98 Lactic Acid 1.1 Calcium 8.0 L D Total Bilirubin 0.2 AST 30 ALT 14 Alkaline Phosphatase 50 Total Creatine Kinase 132 C-Reactive Protein 0.87 H Total Protein 6.3 L Albumin 3.9 Urine Color Yellow Urine Appearance Clear Urine pH 6.0 Ur Specific [place] 1.020 Urine Protein Negative Urine Glucose (UA) Negative Urine Ketones 40 Urine Blood Negative Urine Nitrite Negative Ur Leukocyte Esterase Negative Urine RBC 0-2 Urine WBC 0-5 Ur Squamous Epith Cells 0-2 Urine Bacteria Trace Hyaline Casts 0-2 COVID-19 (SHARLA) COVID-19 Clin Com Influenza Type A (AIME) Influenza Type B (AIME) Influenza A & B Note S. pyogenes GrpA AIME 03/13/25 03/13/25 17:13 17:14 WBC RBC Hgb Hct MCV MCH MCHC RDW Plt Count MPV Immature Gran % (Auto) Neut % (Auto) Lymph % (Auto) Cascade % (Auto) Eos % (Auto) Baso % (Auto) Lymph # (Auto) Cascade # (Auto) Eos # (Auto) Baso # (Auto) Abs Immat Gran (auto) Absolute Neuts (auto) Absolute Nucleated RBC Nucleated RBC % (auto) ESR PT INR Sodium Potassium Chloride Carbon Dioxide Anion Gap BUN Creatinine Estim Creat Clear Calc Estimated GFR Random Glucose Lactic Acid Calcium Total Bilirubin AST ALT Alkaline Phosphatase Total Creatine Kinase C-Reactive Protein Total Protein Albumin Urine Color Urine Appearance Urine pH Ur Specific [place] Urine Protein Urine Glucose (UA) Urine Ketones Urine Blood Urine Nitrite Ur Leukocyte Esterase Urine RBC Urine WBC Ur Squamous Epith Cells Urine Bacteria Hyaline Casts COVID-19 (SHARLA) Negative COVID-19 Clin Com See Note Influenza Type A (AIME) Negative Influenza Type B (AIME) Negative Influenza A & B Note See Note S. pyogenes GrpA AIME Negative Discharge Plan Discharge Anticipated Discharge Date/Time: 03/13/25 23:15 Patient Disposition: Left Against Medical Advice Discharge Diagnosis: anaphylaxis, allergic reaction from drug, likely desvenlafaxine Referrals: Garrett Willoughby PA-C [Primary Care Provider, Internal Medicine] - 1 Week Discharge Medications: New epinephrine [EpiPen 2-Vargas] 0.3 mg/0.3 mL auto-injector 0.3 mg IM Q10M PRN (Reason: anaphylaxis) Qty: 2 0RF Rx Instructions: for 2 doses Continued sertraline 100 mg tablet 100 mg PO DAILY Qty: 90 2RF lorazepam 0.5 mg tablet 0.5 mg PO DAILY PRN (Reason: anxiety) 7 Days Qty: 7 0RF trazodone 100 mg tablet 100 mg PO BEDTIME PRN (Reason: Insomnia) loratadine 10 mg tablet 10 mg PO DAILY PRN (Reason: Allergies) Discharge Orders: Discharge Order (Routine); Ordered 03/13/25 Ordered By: Dorothea Nuñez Diet: Regular diet Activity on Discharge: No Restrictions Stand Alone Forms: Against Medical Advice Print Language: Mauritian Care Plan Goals: recover from allergic reaction Health Concerns: Anaphylaxis, angioedema, allergic reaction secondary to drug (likely desvenlafaxine), anxiety/panic disorder, cap by leukopenia, thrombocytopenia, iron-deficiency anemia pt left AMA, risks discussed. Plan of Treatment: Patient left AMA epi pen sent to pharmacy pt states she will continue with benadryl every 6 hours at home and return if sx worsen again Assessment: see above Discharge Date/Time: 03/14/25 04:13
[2025-03-14 09:59] LABS: Influenza A H1 PCR Not Detected (Not Detect.); Influenza A H1-2009 PCR Not Detected (Not Detect.); Influenza A H3 PCR Not Detected (Not Detect.); SARS-CoV-2 PCR Not Detected (Not Detect.)
== END 2025-03-14 04:13 | disposition left against medical advice (07) | DRG 916 ==
LOC: HO.ED 19:01 → HO.EDOVER 19:29
PROVIDERS: Physician Assistant Medical; Admitting Provider Hospitalist; Emergency Provider Student in an Organized Health Care Education/Training Program; PCP Physician Assistant; Visit Provider Hospitalist
DX: T88.6XXA Anaphylactic reaction due to adverse effect of correct drug or medicament properly administered, initial encounter (principal); T43.215A Adverse effect of selective serotonin and norepinephrine reuptake inhibitors, initial encounter; T78.3XXA Angioneurotic edema, initial encounter; F32.9 Major depressive disorder, single episode, unspecified; F41.1 Generalized anxiety disorder; D50.9 Iron deficiency anemia, unspecified; D69.6 Thrombocytopenia, unspecified; D70.2 Other drug-induced agranulocytosis; T36.8X5A Adverse effect of other systemic antibiotics, initial encounter; Z20.822 Contact with and (suspected) exposure to COVID-19; Z79.899 Other long term (current) drug therapy
CPT/HCPCS: 36415; 73201; 80053; 81001; 82550; 83605; 85025; 85610; 85652; 86140; 87040; 87502; 87633; 87635; 87651; 99222; 99285; J0131; J0165; J1200; J1308; J2270; J2919; Q9967

== ENCOUNTER → 2025-03-13 11:24 | Outpatient (BNV) | payer OTHER, SELFPAY | PROVIDERS: Emergency Provider Student in an Organized Health Care Education/Training Program; PCP Physician Assistant; Visit Provider Hospitalist | DX: T78.2XXA Anaphylactic shock, unspecified, initial encounter (principal); S71.151A Open bite, right thigh, initial encounter; W55.01XA Bitten by cat, initial encounter; F41.0 Panic disorder [episodic paroxysmal anxiety]; F33.1 Major depressive disorder, recurrent, moderate; F41.1 Generalized anxiety disorder; D61.818 Other pancytopenia | CPT/HCPCS: 99499 ==

== ENCOUNTER → 2025-03-13 13:11 | Outpatient (BNV) | payer OTHER, SELFPAY | PROVIDERS: Emergency Provider Student in an Organized Health Care Education/Training Program; PCP Physician Assistant; Visit Provider Radiology Diagnostic Radiology | DX: M79.621 Pain in right upper arm (principal); M79.631 Pain in right forearm | CPT/HCPCS: 73201 ==

== ENCOUNTER 2025-04-04 11:06 | Outpatient (RCR) | payer OTHER, SELFPAY ==
--- NOTE | 2025-04-06 07:33 | HO.PHP ---
On 04/04/2025 this proposal lead writer met with the patient,Nelida for the purpose of completing the intake assessment for PHP treatment. The patient reported that she is scheduled for surgery on 04/11/2025 and will be out the entire week. This write suggested that the patient reschedule the intake for PHP after her surgery,the patient agreed,the intake was rescheduled for 04/25/2025. Lianet Elliott,[facility]
== END 2025-04-04 11:53 | disposition home or self-care (01) ==
LOC: HO.PHPA 11:06
PROVIDERS: Visit Provider Psychiatry & Neurology Psychiatry
DX: F32.9 Major depressive disorder, single episode, unspecified (principal); F41.1 Generalized anxiety disorder

== ENCOUNTER 2025-06-06 15:13 | Outpatient (REF) | payer SELFPAY ==
[2025-06-06 15:32] LABS: MANUAL DIFF FLAG NO
[2025-06-06 15:54] LABS: Hematocrit 39.0 % (37.0-47.0); Hemoglobin 12.8 g/dl (12.0-16.0); Imm Gran Abs Auto 0.02 X10*3/uL (0.00-0.03); Imm Gran Pct Auto 0.4 % (0.0-0.4); Lymphocytes Absolute Auto 1.4 X10*3/uL (1.2-4.9); Mean Corpuscular HGB Conc 32.8 g/dl (31.0-35.0); Mean Corpuscular Hemoglobin 29.6 pg (27.0-33.0); Mean Corpuscular Volume 90.1 fL (80.0-98.0); NRBC Abs Auto 0.000 X10*3/uL (0.0-0.012); NRBC Pct Auto 0.0 /100WBC (0.0-0.2); Platelet Count 231 X10*3/uL (160-400); Red Blood Count 4.33 X10*6/uL (4.20-5.50); White Blood Count 4.5 X10*3/uL (4.8-10.8)
[2025-06-06 16:33] LABS: Anion Gap 12 (12-20); Blood Urea Nitrogen 12 mg/dL (9-16); Carbon Dioxide 27 mmol/L (22-29); Chloride 107 mmol/L (96-108); Estimated Glomerular Filt Rate > 60; Potassium 4.2 mmol/L (3.3-5.1); Sodium 142 mmol/L (135-145)
[2025-06-06 16:50] LABS: Free T4 (Free Thyroxine) 0.84 ng/dL (0.71-1.85); Thyroid Stimulating Hormone 1.91 uIU/mL (0.32-4.0)
--- OUTSIDE RECORDS SUMMARY | 2025-06-06 18:22 | XMS_ITS | Clinical Summary ---
Author Organization [facility] Address [address] [place] [address] Care Team Providers Care Calcine Furnace Tender Name Role Phone Garrett Willoughby Primary Care Provider Allergies Active Allergy Reactions Criticality Noted Date Comments Amoxicillin Other (see comments) 04/01/2025 No affect on infection Clindamycin Anaphylaxis High 03/18/2025 Desvenlafaxine Anaphylaxis High 04/01/2025 Penicillins Other (see comments) 04/01/2025 No affect on infection Sulfamethoxazole-Trimeth oprim Anaphylaxis High 04/01/2025 Medications sertraline (ZOLOFT) 100 mg tablet SMARTSI Tablet(s) By Mouth Daily 02/14/20 25 Active traZODone (DESYREL) 100 mg tablet SMARTSI Tablet(s) By Mouth Every Night PRN 03/14/20 25 Active LORazepam (ATIVAN) 0.5 mg tablet SMARTSI Tablet(s) By Mouth Daily PRN Active docusate sodium (COLACE) 100 mg capsule Take 1 capsule (100 mg total) by mouth 2 times a day. To prevent constipation. Stop taking if your are having loose bowel movements. 20 capsule 04/12/20 25 Active ondansetron (ZOFRAN ODT) 4 mg disintegrating tablet Dissolve 1 tablet (4 mg total) in the mouth every 8 hours as needed for nausea or vomiting. 4 tablet 04/12/20 25 Active naloxone HCl (Narcan) 4 mg/actuation nasal spray Instill the contents of 1 unit intranasally for suspected opioid overdose (unresponsive / unconscious, decreased breathing). Repeat after 3 minutes if no or minimal response. Contact 911 immediately. 2 each 04/12/20 25 Active ondansetron (ZOFRAN) 4 mg tablet Take 1 tablet (4 mg total) by mouth every 8 hours as needed for nausea or vomiting. 8 tablet 04/16/20 25 Active QUEtiapine (SEROquel) 25 mg tablet SMARTSI-3 Tablet(s) By Mouth Every Night 04/26/20 25 Active Active Problems No known active problems Encounters Date Type Department Care Team Description 05/04/2025 1:45 PM EDT - 05/04/2025 11:59 PM EDT Hospital Encounter [facility] [address] [place] [id number] Rigger Up: Josiah Matamoros PA S/P tonsillectomy (Primary Dx) Discharge Disposition: Home or Self Care () 04/16/2025 Telephone [facility] [address] [place] [id number] Rigger Up: Aileen Jiang MD 04/12/2025 8:55 AM EDT Anesthesia Event [facility] Operating Room [address] [place] [id number] Rodrigo Davis MD Benoit, Justin P., DO 04/12/2025 8:30 AM EDT - 04/12/2025 9:45 AM EDT Surgery [facility] Operating Room [address] [place] [id number] Davidson Gonzalez MD Tonsillectomy, age 12 or over [91056 (CPT )] 04/12/2025 6:43 AM EDT - 04/12/2025 11:36 AM EDT Hospital Encounter [facility] Operating Room [address] [place] [id number] Davidson Gonzalez MD Recurrent tonsillitis Discharge Disposition: Home or Self Care () 04/12/2025 myChart Message [facility] Operating Room [address] [place] [address] Ann Yost Provider Questionnaire Submission 03/18/2025 9:45 AM EDT - 03/18/2025 11:59 PM EDT Hospital Encounter [facility] [address] [place] [id number] Rigger Up: Davidson Gilbert MD Recurrent tonsillitis (Primary Dx) Discharge Disposition: Home or Self Care () from Last 3 Months Social History Tobacco Use Types Packs/Day Years Used Date Smoking Tobacco: Never Smokeless Tobacco: Never Tobacco Cessation:Counseling Given: Not Answered Comments No Sex and Gender Information Value Date Recorded Sex Assigned at Female 10/12/2024 2:41 PM EDT Legal Sex Female 2:46 PM EDT Gender Identity Female 04/12/2025 12:34 AM EDT Sexual Orientation Choose not to disclose 2024 12:34 AM EDT Last Filed Vital Signs Vital Sign Reading Time Taken Comments Blood Pressure 90/63 04/12/2025 10:42 AM EDT Pulse 67 04/12/2025 10:42 AM EDT Temperature 36.7 C (98 F) 04/12/2025 10:42 AM EDT Respiratory Rate 15 04/12/2025 10:42 AM EDT Oxygen Saturation 99% 04/12/2025 10:42 AM EDT Inhaled Oxygen Concentration - - Weight 62.2 kg (137 lb 2 oz) 04/12/2025 6:58 AM EDT Height 167.6 cm (5' 5.98 ) 04/12/2025 6:58 AM ED T Body Mass Index 22.14 04/12/2025 6:58 AM EDT Plan of Treatment Health Maintenance Due Date Last Done Comments HIV Screening 1999 Hepatitis C Screening 1999 Varicella Vaccines (1 of 2 - 13+ 2-dose series) 2012 HPV Vaccines (1 - 3-dose series) 2014 Hepatitis B Vaccines (1 of 3 - 19+ 3-dose series) 2018 Alcohol/Substance Use Screening 07/07/2024 Depression Screening and Follow-Up 07/07/2024 Social Drivers of Health Annual Screening 07/07/2024 Influenza Vaccine (#1) 2025 2, 06/12/2021, 06/27/2020 COVID-19 Vaccine (3 - 2024-2 6 season) 2025 05/23/2022, 06/12/2021 DTaP,Tdap,and Td Vaccines (2 - Td or Tdap) 08/20/2026 08/20/2016 Pneumococcal Vaccine: Pediatric (0-5 Years) and At-Risk Patients (6-50 Years) Aged Out No longer eligible based on patient's age to complete this topic Procedures * Due to [place] [employer] law, this organization might not be sharing negative HIV tests. Procedure Name Priority Date/Time Associated Diagnosis Comments TISSUE EXAM Routine 04/12/2025 9:10 AM EDT Recurrent tonsillitis TX REMOVAL OF TONSILS,12+ Y/O 04/12/2025 8:39 AM EDT Recurrent tonsillitis Special Needs Headlight, ophthalmology stretcher, tonsillectomy tray, tonsillectomy pack, specimens to go separately, 2ND CASE PLEASE POCT HCG, URINE Routine 04/12/2025 6:59 AM EDT from Last 3 Months Results * Due to [place] [employer] law, this organization might not be sharing negative HIV tests. * Tissue Exam (04/12/2025 9:10 AM EDT) Final Diagnosis Specimen #1 - Right Tonsil, Tonsillectomy: - Chronic tonsillitis with reactive lymphoid hyperplasia. Specimen #2 - Left Tonsil, Tonsillectomy: - Chronic tonsillitis with reactive lymphoid hyperplasia. [facility] 04/13/2025 2:25 PM EDT [facility] at 1425 EDT Clinical History Pre-op diagnosis: Recurrent tonsillitis [J03.91] [facility] 04/13/2025 2:25 PM EDT [facility] Gross Description 1. Tonsil, Right Specimen 1: The specimen is received in formalin, labeled with the patient's name, medical record number, date of , and right tonsil . It consists of a single, ovoid lucas-pink tonsil measuring 2.8 x 1.8 x 0.9 cm. The mucosal surface is lucas-pink and the cut surfaces show normal crypts. No suspicious areas of induration or nodularity are noted grossly. The margin is inked black and a retail sales representative cross-section is submitted in 1A. 2. Tonsil, Left Specimen 2: The specimen is received in formalin, labeled with the patient's name, medical record number, date of , and left tonsil . It consists of a single, ovoid lucas-pink tonsil measuring 2.8 x 1.8 x 0.9 cm. The mucosal surface is lucas-pink and the cut surfaces show normal crypts. No suspicious areas of induration or nodularity are noted grossly. The margin is inked black and a retail sales representative cross-section is submitted in 2A. [facility] 04/13/2025 2:25 PM EDT [facility] Gross Description User Grossing complete by Ariana Baez on 04/12/2025 11:41 AM [facility] 04/13/2025 2:25 PM EDT [facility] Embedded Images [facility] 04/13/2025 2:25 PM EDT [facility] [employer] [facility] Resulting Agency Case was signed out at [facility], Department of Pathology, [employer] 3 [place] [id number] [facility] MANUAL 04/13/2025 2:25 PM EDT [facility] Report Header Surgical Pathology Report Case: [id number] Authorizing Provider: Davidson Gonzalez MD Collected: 04/12/2025 0910 Ordering Location: [facility] Received: 04/12/[address] [place] [address] Operating Room Pathologist: Dallin Dale MD Specimens: 1) - Tonsil, Right, Right Tonsil 2) - Tonsil, Left, Left Tonsil 04/13/2025 2:25 PM EDT [facility] Tissue Entire left tonsil (palatine) / Unknown 04/12/2025 9:10 AM EDT 04/12/2025 11:26 AM EDT Comment:Pre-op diagnosis: Recurrent tonsillitis [J03.91] Tissue specimen (specimen) Entire left tonsil (palatine) / Unknown 04/12/2025 9:10 AM EDT 04/12/2025 11:26 AM EDT Comment:Pre-op diagnosis: Recurrent tonsillitis [J03.91] Davidson Gonzalez MD LAB PATHOLOGY/CYTOLOGY ORDER MARY KAY Final Result [facility] [address] [place] [id number] * POCT HCG, Urine, non-interfaced (04/12/2025 6:59 AM EDT) Control band present? Yes Background Clear? Yes Preg Test, Ur Negative Negative Urine 04/12/2025 6:59 AM EDT Davidson Gonzalez MD POINT OF CARE TEST ORDERABLE S Final Result from Last 3 Months Insurance Advance Directives * Full Code (Latest Code Status on File) Date Activated Date Inactivated Comments 04/12/2025 6:54 AM 04/12/2025 1:42 PM Care Teams Calcine Furnace Tender Relationship Specialty Start Date End Date Case, Garrett, PA [address] [place] [id number] PCP - General 10/13/24
--- OUTSIDE RECORDS SUMMARY | 2025-06-06 18:22 | XMS_ITS | Encounter Summary ---
Author Organization [facility] Address [address] [place] [address] Care Team Providers Care Card Clothier Name Role Phone Garrett Willoughby Primary Care Provider [phone] Encounter Details Date Type Department Care Team (Late st Contact Info) Description 04/12/2025 myChart Message [facility] Operating Room [address] [place] [address] Mychart, Generic Provider [address] [place] [address] Questionnaire Submission Social History Tobacco Use Types Packs/Day Years Used Date Smoking Tobacco: Never Smokeless Tobacco: Never Comments No Sex and Gender Information Value Date Recorded Sex Assigned at Female 10/12/2024 2:41 PM EDT Legal Sex Female 2:46 PM EDT Gender Identity Female 04/12/2025 12:34 AM EDT Sexual Orientation Choose not to disclose 2024 12:34 AM EDT documented as of this encounter Plan of Treatment Not on file documented as of this encounter Visit Diagnoses Not on filedocumented in this encounter Care Teams Card Clothier Relationship Specialty Start Date End Date Garrett Willoughby PA [address] [place] [id number] PCP - General 10/13/24 documented as of this encounter
== END 2025-06-06 15:14 | disposition home or self-care (01) ==
LOC: HO.LAB 15:13
PROVIDERS: Absent Provider Psychiatry & Neurology Psychiatry; PCP Physician Assistant; Visit Provider Physician Assistant
DX: F33.2 Major depressive disorder, recurrent severe without psychotic features (principal)
CPT/HCPCS: 36415; 80051; 82565; 84439; 84443; 84520; 85025